=== PATIENT | male | born 1965 | race Asian ===

== ENCOUNTER 2017-07-24 18:05 | Inpatient (IN) | payer OTHER ==
[~2017-07-24] VITALS: Ht 167.6 cm; Wt 82.1 kg
[2017-07-24 18:05] VITALS: BP 124/79
[~2017-07-24 18:05] MED LIST: ACET-7756 GT; ACET-8386 GT; ATI.5 GT; ATOR20TA GT; ATRN INH; CODE118S2 GT; D50SYR IV; FOS500 PO; KEP500L GT; LACT1CAP24 GT; MULT15LI1 GT; NITR0.4T2 SL; POLY15SO48 OP; PRON INH; ZINC220C12 GT; [UNRECOGNIZED DRUG - CODE] GT; [UNRECOGNIZED DRUG - CODE] PO; [UNRECOGNIZED DRUG - CODE] PO
--- NOTE | 2017-07-24 18:05 | NUR ---
ASSUMED CARE OF PT AT THIS THIS TIME. PT PRES[facility] FOR ANA LUISA CATHETER REPLACEMENT. PT DID NOT RECEIVE DIALYSIS TODAY. PMH= QUADRAPLEGIA S/T INTRACRANIAL HEMORRHAGE, DM2, ESRD, HYPERLIPIDEMIA, ANEMIA, HTN. PT HAS TRACHESOTOMY AND IS VENT DEPENDENT W/ THE FOLLOWING SETTINGS: AC12, QV=502, PEEP=5, AND FiO2=35%. G-TUBE NOTED. PT IS CURRENTLY AT BASELINE MENTATION. LUNGS CLEAR BL; HR EVEN AND REGULAR; PAIN OF 0/10 AT THIS TIME; VSS; PATIENT POSITIONED FOR COMFORT; HOB ELEVATED; BEDRAILS UP X2; BED DOWN. ER MD MADE AWARE OF PT STATUS.
--- NOTE | 2017-07-24 18:05 | NUR ---
Patient BIBA CCT on ventilator from SNF, transferred to bed 5. RN evaluating patient at bedside.
[2017-07-24 18:10] VITALS: BP 124/79
--- NOTE | 2017-07-24 18:10 | NUR ---
Respiratory therapist evaluating patient at bedside.
[2017-07-24] MEDS ORDERED: ACET-7756 GT (18:50)
[2017-07-24] MEDS ORDERED: APIX2.5 GT (18:51)
[2017-07-24] MEDS ORDERED: LORA-476 GT (18:55)
[2017-07-24] MEDS ORDERED: ATOR10TA GT (18:56)
[2017-07-24] MEDS ORDERED: DOCU-299 GT (18:57)
[2017-07-24] MEDS ORDERED: KEP500L GT (18:59)
[2017-07-24] MEDS ORDERED: PANT40EC GT (19:00)
[2017-07-24] MEDS ORDERED: SEVE0.8P GT (19:02)
--- NOTE | 2017-07-24 19:11 | NUR ---
REPORT GIVEN TO FRACISCO NYE TO ASSUMED CARE.
--- NOTE | 2017-07-24 19:32 | NUR ---
Dr. Goldstein evaluating patient at bedside.
[2017-07-24 20:10] LABS: BASOPHILS % (AUTO) 0.5 % (0.0-2.0); EOSINOPHILS # (AUTO) 0.5 K/uL (0-0.4); EOSINOPHILS % (AUTO) 7.4 % (0.0-4.0); HEMATOCRIT 26.8 % (36-52); HEMOGLOBIN 8.9 g/dL (12.0-18.0); LYMPHOCYTES # (AUTO) 0.6 K/uL (2.0-11.5); LYMPHOCYTES % (AUTO) 9.2 % (20.5-51.1); MEAN CORPUSCULAR HEMOGLOBIN 29 pg (27-31); MEAN CORPUSCULAR HGB CONC 33 g/dL (33-37); MEAN CORPUSCULAR VOLUME 87.3 fL (80-94); MONOCYTES # (AUTO) 0.4 K/uL (0.8-1.0); MONOCYTES % (AUTO) 5.7 % (1.7-9.3); NEUTROPHILS # (AUTO) 5.1 K/uL (1.8-7.7); NEUTROPHILS % (AUTO) 77.2 % (42.2-75.2); PLATELET COUNT (AUTO) 82 K/uL (140-450); RED BLOOD CELL COUNT(AUTO) 3.06 MIL/uL (4.20-6.10); RED CELL DISTRIBUTION WIDTH 14.6 % (11.6-13.7); WHITE BLOOD COUNT (AUTO) 6.6 K/uL (4.8-10.8)
[2017-07-24 20:23] LABS: ANION GAP 14.4 (8-16); CARBON DIOXIDE 26.4 mmol/L (21-32); POTASSIUM 3.8 mmol/L (3.5-5.1)
[2017-07-24 20:25] LABS: CREATININE 7.3 mg/dL (0.7-1.3)
[2017-07-24] MEDS ORDERED: NACL 0.9% 1,000 ML IV SCH (20:34)
[2017-07-24] MEDS ORDERED: DOCUSATE SODIUM 100 MG GELCAP PO PRN (20:35)
[2017-07-24] MEDS ORDERED: METOCLOPRAMIDE 10 MG/2 ML INJ VIAL IVP SCH (20:35)
[2017-07-24] MEDS ORDERED: ACETAMINOPHEN 325 MG TAB PO PRN (20:35)
[2017-07-24] MEDS ORDERED: HYDROcodone/APAP 7.5/325 MG 1 TAB PO PRN (20:35)
[2017-07-24] MEDS ORDERED: INSULIN LISPRO SLIDING SCALE 100 UNITS/ML VIAL SUBQ PRN (20:45)
[2017-07-24] MEDS ORDERED: LIDOCAINE HYDROCHLORIDE PO SCH (20:45)
[2017-07-24] MEDS ORDERED: MAGNESIUM HYDROXIDE 1200 MG PO SCH (20:45)
[2017-07-24] MEDS ORDERED: ALBUTEROL 0.083% 2.5 MG/3 ML NEBU INH PRN ×2 (20:45→23:30)
[2017-07-24] MEDS ORDERED: DEXTROSE 50% 50 ML SYR IVP PRN (20:45)
[2017-07-24] MEDS ORDERED: ACETAMINOPHEN 160 MG/5 ML UDC GT PRN ×2 (20:45)
--- NOTE | 2017-07-24 20:49 | NUR ---
Patient will be admitted to care of [facility]. Admited to TELE. Will go to room 123a. Belongings list completed. Report to SEAN YAP
--- NOTE | 2017-07-24 20:49 | NUR ---
Pt transferred to Tele 123B via BED WITH RN JANE,RT, EMT.
--- NOTE | 2017-07-24 20:50 | NUR ---
PATIENT TRANSFERRED TO ROOM 123B VIA 50% AMBU BAG WITH ASSISTANCE FROM ABI SANDY. NO RESP DISTRESS NOTED DURING TRANSPORT. PLACE BACK ON VENTILATOR AC-12, VT-450, FIO2-35% PEEP+5
[2017-07-24 20:55] VITALS: BP 118/67
--- NOTE | 2017-07-24 20:55 | NUR ---
REPORT RECEIVED FROM ED NURSE. PT IN STABLE CONDITION. INTRODUCED SELF TO PT. GOWN CHANGED. PT VENTILATED AND APHASIC. IV SITE RIGHT HAND 24G PATENT AND INTACT. SKIN WARM, DRY AND INTACT WITH NO OPEN WOUNDS. VENT SETTINGS ARE TV 450, FIO2 35, RR 12, PEEP 5. PT WITH GTUBE THAT IS INTACT, PLACEMENT VERIFIED BY AUSCULTATION. LUNGS CLEAR BILATERALLY. BED LOCKED IN LOW POSITION. CALL BRICENO WITHIN REACH. WILL CONTINUE TO MONITOR.
[2017-07-24] MEDS ORDERED: [UNRECOGNIZED DRUG - MIXTURE] GT SCH (21:00)
[2017-07-24] MEDS ORDERED: [UNRECOGNIZED DRUG - OTHER] GT SCH (21:00)
[2017-07-24] MEDS ORDERED: IRON GT SCH (21:00)
[2017-07-24] MEDS ORDERED: SEVELAMER CARBONATE GT SCH (21:00)
[2017-07-24] MEDS ORDERED: SODIUM GT SCH (21:00)
[2017-07-24] MEDS: BLOOD GLUCOSE MONITORING 1 DEV DEV FS SCH (21:00)
[2017-07-24 21:02] LABS: PROTHROMBIN TIME 11.2 secs (10.8-13.4)
[2017-07-24 21:15] LABS: CHOL/HDL RATIO 1.4 (1-4.5); FREE T4 (FREE THYROXINE) 0.94 ng/dL (0.76-1.46); MAGNESIUM 2.6 mg/dL (1.8-2.4); THYROID STIMULATING HORMONE 2.61 uIU/mL (0.34-3.74)
--- NOTE | 2017-07-24 22:15 | NUR ---
PM MEDS GIVEN. PT TOLERATED WELL. WILL CONTINUE TO MONITOR.
[2017-07-24] MEDS: levETIRAcetam 100 MG/ML ORASYR GT SCH (22:23)
[2017-07-24] MEDS: ATORVASTATIN 20 MG TAB GT SCH (22:23)
--- NOTE | 2017-07-24 23:30 | NUR ---
ORDERED LEVAQUIN AND CLEOCIN FOR PT DUE TO CHEST XRAY RESULTS SEEING PNA IN HE BASES OF THE LUNGS. AWAITING PHARMACY TO PROCESS AND COMPLETE ORDER. Addendum: 07/25/17 at 0122 by Leonard Galvin RN STATED ORDER WILL BE LEVAQUIN 750 ONCE THEN LEVAQUIN 500MG Q48H.
[2017-07-25] VITALS: BP 125/68
[2017-07-25] MEDS ORDERED: ALBUTEROL 0.083% 2.5 MG/3 ML NEBU INH SCH
[2017-07-25] MEDS ORDERED: IPRATROPIUM 0.02% 0.5 MG/2.5 ML NEBU INH SCH
[2017-07-25] MEDS: LEVOFLOXACIN 750 MG/D5W PREMIX 150 ML IV SCH (00:24)
[2017-07-25] MEDS: IPRATROPIUM 0.02% 0.5 MG/2.5 ML NEBU INH SCH ×4 (01:00→18:53)
[2017-07-25] MEDS: ALBUTEROL 0.083% 2.5 MG/3 ML NEBU INH SCH ×4 (01:00→18:53)
--- NOTE | 2017-07-25 01:00 | NUR ---
PT ASLEEP IN BED BUT AROUSABLE. PT NOT IN ANY ACUTE DISTRESS. WILL CONTINUE TO MONITOR.
--- NOTE | 2017-07-25 03:35 | NUR ---
PT IV SITE INFILTRATED CAUSING SWELLING IN THE ARM. IV SITE DC. CANNULA IS INTACT. PT ARM ELEVATED WITH A PILLOW AND WARM COMPRESS.
[2017-07-25 04:00] VITALS: BP 124/70
[2017-07-25] MEDS ORDERED: CLINDAMYCIN 600 MG in DEXTROSE 5% 50 ML IV SCH (05:00)
--- NOTE | 2017-07-25 05:10 | NUR ---
NEW IV INSERTED LEFT FINGER. 2 ATTEMPTS. PT TOLERATED WELL.
[2017-07-25] MEDS ORDERED: CLINDAMYCIN 600 MG/4 ML VIAL ONE (05:38)
[2017-07-25] MEDS: BLOOD GLUCOSE MONITORING 1 DEV DEV FS SCH ×4 (06:28→20:06)
--- NOTE | 2017-07-25 06:43 | NUR ---
rec'd pt on carescape vent settings ac12 vt 450 peep 5 fio2 35% alarms on and audible and functioning properly, ambu bag at side of vent and vent is plugged into red outlet, i\l tx given with albuterol 2.5mg and atrovent 0.5mg with no adverse reaction post tx b\s are clear bilaterally, sxn pt moderate amt of thick yellow secretions, pt is trach with portex 9 and skin integrity is intact pt is resting with no signs of distress noted at this time
--- NOTE | 2017-07-25 07:15 | NUR ---
REPORT GIVEN TO AM NURSE. PT IN STABLE CONDITION.
--- NOTE | 2017-07-25 07:16 | NUR ---
REPORT RECEIVED FROM CIRCUIT BREAKER MECHANIC NURSE AT BEDSIDE FOR CONTINUITY OF CARE. PATIENT AOX1, APHASIC, DX: ANA LUISA CATH REPLACEMENT. ANA LUISA CATH IS ON LEFT UPPER CHEST. IV TO LEFT INDEX FINGER 24G INFUSING NS AT 60 ML/HR, PATENT, INTACT, AND ASYMPTOMATIC. PATIENT IS TRACH TO VENT, VT 450, FIO2 35, RR 16, PEEP 5. FLACC-0, RIGHT ARM NON PITTING EDEMA D/T PRIOR INFILTRATED IV, ELEVATED ON PILLOW. SKIN IS INTACT. SCDS IN PLACE, PATIENT IS IN CONTACT ISOLATION FOR HX OF MDRO IN URINE. SAFETY AND ISOLATION PRECAUTION IN PLACE, BED ON LOWEST SETTING, BED ALARM ON, CALL LIGHT WITHIN REACH, WILL CONTINUE TO MONITOR PATIENT.
[2017-07-25 08:00] VITALS: BP 126/68
[2017-07-25] MEDS: ZINC SULF 220 MG CAP GT SCH (08:28)
[2017-07-25] MEDS: LACTOBACILLUS RHAMNOSUS GG 1 EACH CAP PO SCH (08:28)
[2017-07-25] MEDS: levETIRAcetam 100 MG/ML ORASYR GT SCH ×2 (08:28→20:50)
--- NOTE | 2017-07-25 08:28 | NUR ---
GTUBE AUSCULTATED, 0 ML RESIDUAL NOTED, GTUBE PATENT. ORDERED MEDICATIONS ADMINISTERED. PATIENT TOLERATED THEM WELL. PATIENT SUCTIONED, MINIMAL WHITE CLEAR SECRETIONS NOTED. FLACC-0, RESPIRATIONS EVEN AND UNLABORED. SAFETY AND ISOLATION PRECAUTION IN PLACE, BED ON LOWEST SETTING, BED ALARM ON, CALL LIGHT WITHIN REACH, WILL CONTINUE TO MONITOR PATIENT. Addendum: 07/25/17 at 1035 by Helder Boateng RN GTUBE MEDICATIONS FLUSHED WITH 100 ML OF WATER.
[2017-07-25] MEDS ORDERED: PANTOPRAZOLE 40 MG TABEC PO SCH (09:00)
[2017-07-25] MEDS ORDERED: LANSOPRAZOLE 30 MG CAPDR GT SCH (09:00)
[2017-07-25] MEDS ORDERED: LACTOBACILLUS RHAMNOSUS GG 1 EACH CAP GT SCH (09:00)
--- NOTE | 2017-07-25 09:00 | NUR ---
vent check, airway patent and pt is sleeping
--- NOTE | 2017-07-25 09:47 | NUR ---
NEW ORDER IN FOR PREVACID. GTUBE AUSCULTATED, 0 ML RESIDUAL NOTED, GTUBE PATENT. ORDERED MEDICATIONS ADMINISTERED AND FLUSHED WITH TOTAL OF 60 ML OF WATER. PATIENT TOLERATED IT WELL. PATIENT SUCTIONED, MINIMAL WHITE CLEAR SECRETIONS NOTED. FLACC-0, RESPIRATIONS EVEN AND UNLABORED. SAFETY AND ISOLATION PRECAUTION IN PLACE, BED ON LOWEST SETTING, BED ALARM ON, CALL LIGHT WITHIN REACH, WILL CONTINUE TO MONITOR PATIENT.
[2017-07-25 09:57] LABS: PLATELET COUNT (AUTO) 84 K/uL (140-450)
[2017-07-25 10:01] LABS: HEMOGLOBIN 8.7 g/dL (12.0-18.0); MEAN CORPUSCULAR HEMOGLOBIN 29 pg (27-31); MEAN CORPUSCULAR HGB CONC 33 g/dL (33-37); MEAN CORPUSCULAR VOLUME 87.2 fL (80-94); RED BLOOD CELL COUNT(AUTO) 2.98 MIL/uL (4.20-6.10); RED CELL DISTRIBUTION WIDTH 14.5 % (11.6-13.7); WHITE BLOOD COUNT (AUTO) 7.3 K/uL (4.8-10.8)
[2017-07-25 10:14] LABS: EOSINOPHILS % (MANUAL) 4 % (0-4); LYMPHOCYTES % (MANUAL) 10 % (20-46); MONOCYTES % (MANUAL) 9 % (5-12)
[2017-07-25 10:15] LABS: BASOPHILS % (MANUAL) 0 % (0-2)
[2017-07-25 10:19] LABS: ANION GAP 15.3 (8-16); CARBON DIOXIDE 24.5 mmol/L (21-32); POTASSIUM 3.8 mmol/L (3.5-5.1)
--- NOTE | 2017-07-25 10:22 | NUR ---
LAB CALLED TO REPORT CRITICAL VALUE OF BUN 97, CREATININE 8.1
[2017-07-25 10:23] LABS: CREATININE 8.1 mg/dL (0.7-1.3)
--- NOTE | 2017-07-25 11:00 | NUR ---
VENT CHECK, SXN PT FOR SECOND C&S MODERATE AMT OF THICK YELLOW SECRETIONS PT IS ALSO HAVING ULTRA SOUND DONE
--- NOTE | 2017-07-25 11:05 | NUR ---
LAB CALLED, SPUTUM SAMPLE CONTAMINATED, NEW SPUTUM SAMPLE NEEDED. RT DESTIN INDUCED SPUTUM, SAMPLE RECEIVED. SAMPLE DROPPED OFF AT LAB.
--- NOTE | 2017-07-25 11:54 | NUR ---
PATIENT GIVEN SPONGE BATH BY ONLINE EDITOR. PATIENT CLEANED AND CHANGED INTO NEW GOWN AND REPOSITIONED TO OFFLOAD PRESSURE AREAS AND FOR COMFORT. BLOOD SUGAR 81, NO COVERAGE NEEDED. FLACC-0, PATIENT SUCTIONED, MINIMAL SECRETIONS NOTED. RESPIRATIONS EVEN AND UNLABORED. SAFETY AND ISOLATION PRECAUTION IN PLACE, BED ON LOWEST SETTING, BED ALARM ON, CALL LIGHT WITHIN REACH, WILL CONTINUE TO MONITOR PATIENT.
[2017-07-25 11:56] VITALS: BP 114/65
[2017-07-25] MEDS: CLINDAMYCIN PHOS 600MG/D5W PM 50 ML IV SCH ×2 (12:30→20:50)
--- NOTE | 2017-07-25 12:54 | NUR ---
CALLED LAB TO INQUIRE IF THEY NEED NEW ORDER TO TEST SPUTUM SAMPLE, THEY ANSWERED IN THE AFFIRMATIVE. WILL PASS THIS ALONG TO THE PHYSICIAN.
--- NOTE | 2017-07-25 12:56 | NUR ---
vent check, no sxn needed at this time, i\l tx givent with albuterol 2.5mg and atrovent 0.5 mg with no adverse reaction post tx b\s are clear and pt is sleeping with no signs of distress noted
--- NOTE | 2017-07-25 13:55 | NUR ---
DR. PONCE IN TO SEE THE PATIENT. UPDATED HIM WITH PATIENT'S STATUS AND PLAN OF CARE. DR. PONCE STATED THAT ONCE ANA LUISA CATH REPLACEMENT HAS BEEN PERFORMED, PLEASE MAKE HIM AWARE SO HE CAN PUT IN AN ORDER FOR DIALYSIS. RN VERBALIZED UNDERSTANDING.
--- NOTE | 2017-07-25 14:02 | NUR ---
INFORMED RESIDENTS OF NEED FOR NEW SPUTUM ORDER AND POSSIBLY FOR STRAIGHT CATH ORDER IF THEY WANT A URINE SAMPLE. DR. MADISON ASKED IF PATIENT HAD URINE. BLADDER SCAN PERFORMED, [address] MADISNO STATED THAT SHE WILL DC URINALYSIS PROFILE.
[2017-07-25] MEDS ORDERED: LIDOCAINE VISCOUS 2% 20 ML UDC MM PRN (14:10)
[2017-07-25] MEDS ORDERED: MAGNESIUM HYDROXIDE 2400 MG/30 ML UDC PO PRN (14:10)
--- NOTE | 2017-07-25 14:45 | NUR ---
IN TO SEE PATIENT. DR. MADISON ALSO IN TO SPEAK TO PATIENT ABOUT CONSENT FOR TUNNELED DIALYSIS CATHETER. DR. MADISON EXPLAINED THE BENEFITS AND RISKS TO PATIENT'S SYLVIASYLVIA VERBALIZED UNDERSTANDING AND SIGNED CONSENT. RN WITNESSED. PATIENT NOW RESTING IN BED, NO SIGNS OF DISTRESS OR SOB NOTED. FLACC-0. SAFETY, ISOLATION, AND SEIZURE PRECAUTION IN PLACE, CALL LIGHT WITHIN REACH. WILL CONTINUE TO MONITOR PATIENT.
--- NOTE | 2017-07-25 15:05 | NUR ---
VENT CHECK, FAMILY AT BEDSIDE SXN PT MODERATE AMT OF THICK YELLOW SECRETIONS, PT IS RESTING
--- NOTE | 2017-07-25 15:08 | NUR ---
ADMITTING WAS CALLED ABOUT PATIENT'S ADMISSION PAPERWORK SINCE SYLVIA IS HERE AND CAN SIGN FOR PATIENT. ABY FROM ADMITTING CAME. ADMISSIONS PAPER SIGNED.
--- NOTE | 2017-07-25 15:50 | NUR ---
DR. MCDANIEL IN TO SEE THE PATIENT. UPDATED HIM ABOUT PATIENT'S STATUS AND CONDITION. HE SAID THAT HE WILL ORDER ABGS TO MANAGE PATIENT'S VENT SETTINGS. AWAITING FOR HIS ORDER.
[2017-07-25 16:00] VITALS: BP 118/66
--- NOTE | 2017-07-25 16:31 | NUR ---
ABG DRAWN ON RR WITHOUT INCIDENT AND RESULTS GIVEN TO DR. CHEUNG VENT CHECK NO SXN NEEDED AND DECREASED FIO2 TO 30% AND TRACH CARE DONE: CHANGED TRACH GAUZE AND INNER CANNULA Addendum: 07/25/17 at 1640 by Grisel Marsh RT decreased fio2 to 28% and rn ky notified of changes made and dr. cheung
--- NOTE | 2017-07-25 16:35 | NUR ---
RT DESIREE INFORMED RN THAT ABG WAS DRAWN, DR. MADISON INFORMED, FIO2 SETTING DECREASED TO 28% FROM 35%. RN VERBALIZED UNDERSTANDING. BLOOD SUGAR 85, NO COVERAGE NEEDED. PATIENT RESTING CALMLY IN BED, NO SIGNS OF DISTRESS OR SOB NOTED, FLACC-0, SAFETY AND ISOLATION PRECAUTION IN PLACE, BED ON LOWEST SETTING, BED ALARM ON, CALL LIGHT WITHIN REACH, WILL CONTINUE TO MONITOR PATIENT.
[2017-07-25] MEDS: FERROUS SULFATE 300 MG/5 ML UDC GT SCH (16:56)
[2017-07-25] MEDS ORDERED: APIXABAN 2.5 MG TAB GT SCH (17:00)
--- NOTE | 2017-07-25 17:03 | NUR ---
GTUBE ASCULATED FOR PLACEMENT, 0 ML RESIDUAL NOTED, GTUBE PATENT. ORDERED MEDICATIONS GIVEN THROUGH G TUBE. PATIENT TOLERATED IT WELL. DR. CAMARA IN TO SEE THE PATIENT. WILL AWAIT FOR HIS ORDERS.
--- NOTE | 2017-07-25 18:53 | NUR ---
vent check, sxn pt small amt of thick yellow secretions, i\l tx given with albuterol 2.5mg and atrovent 0.5mg with no adverse reaction post tx
--- NOTE | 2017-07-25 19:12 | NUR ---
REPORT GIVEN TO SANITARIAN NURSE AT BEDSIDE FOR CONTINUITY OF CARE. PATIENT IN STABLE CONDITION.
--- NOTE | 2017-07-25 19:13 | NUR ---
REPORT RECEIVED FROM AM NURSE. PT IN STABLE CONDITION NO S/S OF ACUTE DISTRESS. PT AAOX1. VENT SETTINGS VT 450, FIO2 28, RR 12, PEEP 5. PT SHOWS NO S/S OF ACUTE DISTRESS. LUNGS SOUNDS DIMINISHED BILATERALLY. HEART SOUNDS NORMAL S1 S2. PT STILL NPO FOR ANA LUISA CATH REPLACEMENT TOMORROW 07/26 AT 0900. BED LOCKED WITH X2 SIDERAILS UP. CALL BRICENO WITHIN REACH. WILL CONTINUE TO MONITOR.
--- NOTE | 2017-07-25 19:35 | NUR ---
RECEIVED PT ON PORTEX 9 TRACH ON VENTILATOR ON SETTINGS: AC/VC 450, RR 12, 28%FI02, AND PEEP +5. AIRWAY SECURED AND PATENT. VENT PLUGGED INTO RED OUTLET AND AMBU BAG. ALARMS ARE SET AND AUDIBLE. NO RESPIRATORY DISTRESS NOTED. SXN SMALL AMOUNT OF THIN WHITE SECRETIONS. WILL CONTINUE TO MONITOR.
[2017-07-25 20:00] VITALS: BP 117/67
--- NOTE | 2017-07-25 20:15 | NUR ---
BS 74 TRENDING DOWN. WILL NOTIFY
--- NOTE | 2017-07-25 20:33 | NUR ---
NOTIFIED. AWAITING NEW ORDERS.
[2017-07-25] MEDS: DEXT 5% / NACL 0.45% 1,000 ML IV SCH (20:50)
[2017-07-25] MEDS: ATORVASTATIN 20 MG TAB GT SCH (20:50)
--- NOTE | 2017-07-25 21:00 | NUR ---
MD ORDER OF D5 1/2NS AT 60ML/HR. PM MEDS GIVEN. PT TOLERATED WELL. PT GTUBE PLACEMENT CHECKED THROUGH AUSCULTATION AND 0ML RESIDUAL. WILL CONTINUE TO MONITOR.
--- NOTE | 2017-07-25 22:00 | NUR ---
SUCTIONED PT DUE TO PT COUGHING. PT TOLERATED WELL. WILL CONTINUE TO MONITOR.
[2017-07-26] VITALS: BP 114/64
--- NOTE | 2017-07-26 00:15 | NUR ---
PT ASLEEP IN BED. CHEST EXPANSION VISIBLE. PT NOT IN ANY ACUTE DISTRESS. WILL CONTINUE TO MONITOR.
[2017-07-26] MEDS: ALBUTEROL 0.083% 2.5 MG/3 ML NEBU INH SCH ×4 (01:19→18:48)
[2017-07-26] MEDS: IPRATROPIUM 0.02% 0.5 MG/2.5 ML NEBU INH SCH ×4 (01:19→18:48)
--- NOTE | 2017-07-26 02:15 | NUR ---
NEW IV IN PLACE. 24G RIGHT UPPER ARM. 4 ATTEMPTS AT IV STARTS. LEFT FINGER IV DC. CANNULA INTACT. PT TOLERATED WELL. WILL CONTINUE TO MONITOR. Addendum: 07/26/17 at 0245 by Leonard Galvin RN L FINGER IV CAME OUT WHEN TURNING PT.
--- NOTE | 2017-07-26 03:55 | NUR ---
SUCTIONED PT OF MUCUS SECRETION. PT TOLERATED WELL. PT IS NOT IN ANY ACUTE DISTRESS. WILL CONTINUE TO MONITOR.
[2017-07-26 04:00] VITALS: BP 119/67
[2017-07-26] MEDS: CLINDAMYCIN PHOS 600MG/D5W PM 50 ML IV SCH ×3 (04:02→20:51)
[2017-07-26] MEDS: BLOOD GLUCOSE MONITORING 1 DEV DEV FS SCH ×4 (05:53→20:50)
[2017-07-26] MEDS: LANSOPRAZOLE 30 MG CAPDR GT SCH (05:55)
--- NOTE | 2017-07-26 06:00 | NUR ---
BLOOD BEING DRAWN BY LAB. PT AWAKE WITH CHEST EXPANSION SEEN. WILL CONTINUE TO MONITOR.
[2017-07-26] MEDS ORDERED: PANTOPRAZOLE 40 MG TABEC PO SCH (06:30)
--- NOTE | 2017-07-26 06:34 | NUR ---
RECEIVED PT ON DOCUMENTED SETTINGS ALARMS ARE ON AND AUDIBLE PTS TRACH PORTEX 9 IS SECURE PT IN HF QUIET BS CLEAR HHN GIVEN I\L WITH 2.5 MG ALBUTEROL AND 0.5 MG ATROVENT CONT POX IN PLACE BMV HOB VENT PLUGGED INTO RED OUTLET
--- NOTE | 2017-07-26 07:05 | NUR ---
REPORT GIVEN TO AM NURSE. PT IN STABLE CONDITION.
--- NOTE | 2017-07-26 07:45 | NUR ---
RECEIVED REPORT FROM STITCH SEPARATOR NURSE, PT EASILY AWAKEN, INTRODUCED SELF, UPDATED BOARD. PT IN BED, NO SIGNS OF DISTRESS, IV ON RIGHT UPPER ARM AT 60 ML/HR, TAPPED IN PLACE, INTACT, NOR SIGNS OF INFECTION OR INFILTRATION, BED IN LOWEST POSITION, CALL LIGHTWEIGHT REACH. G-TUBE IN LEFT UPPER QUAD DRESSING WILL BE CHANGED UPON PTS ARRIVAL BACK FROM PROCURE FOR JOSEP CATH.
[2017-07-26 08:00] VITALS: BP 116/65
[2017-07-26 08:17] LABS: BASOPHILS % (AUTO) 0.8 % (0.0-2.0); EOSINOPHILS # (AUTO) 0.4 K/uL (0-0.4); EOSINOPHILS % (AUTO) 6.3 % (0.0-4.0); HEMOGLOBIN 8.2 g/dL (12.0-18.0); LYMPHOCYTES # (AUTO) 0.9 K/uL (2.0-11.5); LYMPHOCYTES % (AUTO) 15.5 % (20.5-51.1); MEAN CORPUSCULAR HEMOGLOBIN 29 pg (27-31); MEAN CORPUSCULAR HGB CONC 33 g/dL (33-37); MEAN CORPUSCULAR VOLUME 87.3 fL (80-94); MONOCYTES # (AUTO) 0.5 K/uL (0.8-1.0); MONOCYTES % (AUTO) 8.3 % (1.7-9.3); NEUTROPHILS # (AUTO) 3.9 K/uL (1.8-7.7); NEUTROPHILS % (AUTO) 69.1 % (42.2-75.2); PLATELET COUNT (AUTO) 87 K/uL (140-450); RED BLOOD CELL COUNT(AUTO) 2.86 MIL/uL (4.20-6.10); RED CELL DISTRIBUTION WIDTH 14.4 % (11.6-13.7); WHITE BLOOD COUNT (AUTO) 5.7 K/uL (4.8-10.8)
[2017-07-26] MEDS: LACTOBACILLUS RHAMNOSUS GG 1 EACH CAP PO SCH ×2 (08:17→08:18)
[2017-07-26] MEDS: LORazepam 1 MG TAB GT SCH (08:17)
[2017-07-26] MEDS: FERROUS SULFATE 300 MG/5 ML UDC GT SCH ×2 (08:17→16:36)
[2017-07-26] MEDS: levETIRAcetam 100 MG/ML ORASYR GT SCH ×2 (08:17→20:50)
[2017-07-26] MEDS: ZINC SULF 220 MG CAP GT SCH (08:17)
[2017-07-26] MEDS ORDERED: BUPIVACAINE-MPF 0.25% 30 ML VIAL INJ ONE (08:27)
[2017-07-26] MEDS ORDERED: LIDOCAINE/EPI 1% 1:100000 20 ML VIAL INJ ONE (08:28)
[2017-07-26] MEDS ORDERED: ceFAZolin 1,000 MG VIAL ONE (08:28)
--- NOTE | 2017-07-26 08:30 | NUR ---
HIGH PRESSURE ALARM WENT OFF, SUCTIONED 2X, V/S STABLE AFTER/ PT SEEMED MORE RELAXED AFTER SUCTIONING. WILL GIVE DUE MEDICATION AND CHANGED G-TUBE DRESSING, SCANT DRIED BLOOD NOTED ON OLD DRESSING. NEW DRESSING APPLIED AND TAPED ON ALL 4 SIDE. SPOKE WITH SIMONE FROM OR, CONFIRMED 'S PHONE NUMBER TO CONFIRM CONSENT FOR JOSEP CATH REMOVAL/REPLACEMENT.
[2017-07-26 08:33] LABS: MAGNESIUM 2.6 mg/dL (1.8-2.4); PHOSPHORUS 4.3 mg/dL (2.5-4.9)
[2017-07-26] MEDS ORDERED: SEVOFLURANE 250 ML BTL INH ONE (09:00)
[2017-07-26] MEDS ORDERED: fentaNYL 0.05 MG/ML VIAL ONE (09:21)
[2017-07-26] MEDS ORDERED: MIDAZOLAM 2 MG/2 ML VIAL ONE (09:21)
--- NOTE | 2017-07-26 09:26 | NUR ---
SHRIMP BOAT CAPTAIN'S CLARI AND IRVIN TOOK PT TO OR FOR JOSEP CATH REMOVAL/REPLACEMENT. PT IV SITE CHANGED TO SL AND BLUE CAP APPLIED. RT AT BEDSIDE AND TOOK PT OFF VENTILATOR AND ATTACHED TO AMBU BAG. TAKEN OFF TELE. PT STABLE, NO SIGNS OF DISTRESS.
[2017-07-26 10:19] LABS: ANION GAP 17.4 (8-16); CARBON DIOXIDE 22.4 mmol/L (21-32); POTASSIUM 3.8 mmol/L (3.5-5.1)
[2017-07-26 10:21] LABS: CREATININE 9.3 mg/dL (0.7-1.3)
[2017-07-26] MEDS ORDERED: MIDAZOLAM 2 MG/2 ML VIAL IVP ONE (10:35)
[2017-07-26] MEDS ORDERED: METOCLOPRAMIDE 10 MG/2 ML INJ VIAL IVP PRN (10:35)
[2017-07-26] MEDS ORDERED: MEPERIDINE 25 MG/ML SYR IVP PRN ×2 (10:35)
--- NOTE | 2017-07-26 11:07 | NUR ---
PT OFF UNIT
[2017-07-26 12:05] VITALS: BP 120/76
--- NOTE | 2017-07-26 12:05 | NUR ---
PT RECEIVED FROM OR NURSE MARTIN. PT STABLE. JOSEP CATH ON RIGHT FEMORAL. WILL PLACE BACK ON [facility] VENT, CONNECT BACK TO IV DEXTROSE AT 60 ML/HR, SECURE SEQUENTIAL TO LEFT LEG. VS: 98.0 F, 76 HR, 120/76, 16 RR, 96 O2 SAT, NO PAIN ACCORDING TO FLACC. WILL CONTINUE TO MONITOR AND GIVE DUE MEDICATIONS. CALL LIGHT WITHIN REACH, WILL CONTINUE FREQ CHECKS.
--- NOTE | 2017-07-26 12:05 | NUR ---
PT RETURNED FROM SURGERY PLACED ON A\C WITH SAME SETTINGS
[2017-07-26] MEDS: DEXT 5% / NACL 0.45% 1,000 ML IV SCH (12:41)
--- NOTE | 2017-07-26 12:55 | NUR ---
CONSULTED WITH DIETITIAN JENNIFER. WILL FOLLOW UP WITH ORDERS TO PLACE BACK ON FEEDING AND USE JENNIFER'S RECOMMENDATIONS TO DICTATE DIET TYPE/RATE.
--- NOTE | 2017-07-26 14:30 | NUR ---
PER DR. PONCE START DIALYSIS TODAY.
--- NOTE | 2017-07-26 15:40 | NUR ---
07/26/17 RD INITIAL ASSESSMENT COMPLETED PLEASE REFER TO NUTRITION ASSESSMENT UNDER CARE ACTIVITY FOR ESTIMATED NUTRITIONAL NEEDS. 1. CONTINUE NPO MEDICALLY APPROPRIATE 2. RECOMMEND NEPHRO CARB STEADY AT A GOAL RATE OF 45 ML/HR, START AT 10 ML, INCREASE 10 ML Q6H. -THIS WILL PROVIDE 1080 ML, 1944 KCAL, 82 GM PROTEIN, MEETING 100% OF PTS NEEDS. 3. RD TO FOLLOW-UP 2-3 DAYS, HIGH RISK JENNIFER LANGSTON, RD
[2017-07-26 16:00] VITALS: BP 133/76
[2017-07-26] MEDS: APIXABAN 2.5 MG TAB GT SCH (16:36)
--- NOTE | 2017-07-26 17:00 | NUR ---
DIALYSIS NURSE IS AT PATIENT BEDSIDE BEGINNING DIALYSIS. RECEIVED PHONE CALL FROM DR. RUIZ, DOCTOR SPOKE TO DIALYSIS NURSE OVER THE PHONE AND RECEIVED TELEPHONE ORDERS. PT IS RESTING IN BED, NO S/S OF RESPIRATORY DISTRESS OR DISCOMFORT NOTED, CALL LIGHT IS WITHIN REACH, WILL CONTINUE TO MONITOR.
--- NOTE | 2017-07-26 17:45 | NUR ---
PATIENT TUBE FEEDING STARTED AT THIS TIME. INITIAL RATE 10ML/HR, WILL CONTINUE TO MONITOR.
--- NOTE | 2017-07-26 19:01 | NUR ---
RECEIVED PT STABLE ON VENT SUPPORT ON DOCUMENTED SETTINGS, PT IS CURRENTLY FINISHING RECEIVING DIALYSIS AT THIS TIME, HHN TX GIVEN, TOLERATED WELL, NO RESP DISTRESS OR SOB NOTED AT THIS TIME, FOUND PORTEX 9 TRACH FLANGE [address] IN PLACE, OTHERWISE TRACH SECURE/PATENT/MIDLINE, ALARMS SET AND AUDIBLE, AMBU BAG AT BEDSIDE, VENT PLUGGED INTO RED OUTLET, PULSE OX ON, WILL CONT TO MONITOR.
--- NOTE | 2017-07-26 19:05 | NUR ---
RECEIVED REPORT AT PT BEDSIDE FROM DAY SHIFT RN, FOR CONTINUITY OF CARE. PATIENT IS APHASIC, ON A TRACH TO VENT WITH SETTINGS FOLLOWS: FIO2 28%, VT 450, RATE 12, FLOW RATE 40, PEEP 5. UNABLE TO MAKE NEEDS KNOWN, UNABLE TO FOLLOW COMMANDS. PT RECEIVING TUBE FEEDING THROUGH G-TUBE AT 10ML/HR. PATIENT HAS 20G IV TO RIGHT AC. RESPIRATIONS EVEN AND UNLABORED. UPDATED BOARD. VITAL SIGNS WITHIN NORMAL LIMITS. PT STABLE, NO SIGNS OF DISTRESS NOTED AT THIS TIME. BED IN LOWEST POSITION, BED ALARM ON. CALL LIGHT WITHIN REACH, WILL CONTINUE TO MONITOR.
[2017-07-26 19:50] VITALS: BP 117/76
[2017-07-26] MEDS: ATORVASTATIN 20 MG TAB GT SCH (20:51)
--- NOTE | 2017-07-26 21:00 | NUR ---
NO RESIDUAL NOTED, ADMINISTERED SCHEDULED MEDICATIONS, PT TOLERATED WELL. NO INSULIN COVERAGE NEEDED. INCREASED FEEDING RATE TO 20ML/HR. PT IN STABLE CONDITION, WILL CONTINUE TO MONITOR.
--- NOTE | 2017-07-26 23:00 | NUR ---
NO RESIDUAL NOTED, INCREASED FEEDING RATE TO 30ML/HR. WILL MONITOR TOLERANCE.
[2017-07-27] VITALS (7 sets, daily range): BP systolic 102–134; BP diastolic 63–100
--- NOTE | 2017-07-27 | NUR ---
VITAL SIGNS WITHIN NORMAL LIMITS. PT STABLE, NO SIGNS OF DISTRESS NOTED AT THIS TIME. BED IN LOWEST POSITION, BED ALARM ON. CALL LIGHT WITHIN REACH, WILL CONTINUE TO MONITOR.
[2017-07-27] MEDS: LEVOFLOXACIN 750 MG/D5W PREMIX 150 ML IV SCH (00:08)
[2017-07-27] MEDS: IPRATROPIUM 0.02% 0.5 MG/2.5 ML NEBU INH SCH ×4 (00:59→19:27)
[2017-07-27] MEDS: ALBUTEROL 0.083% 2.5 MG/3 ML NEBU INH SCH ×4 (01:00→19:27)
--- NOTE | 2017-07-27 01:00 | NUR ---
NO RESIDUAL NOTED. INCREASED FEEDING RATE TO 40ML/HR. WILL CONTINUE TO MONITOR FOR PT TOLERANCE OF RATE.
--- NOTE | 2017-07-27 03:00 | NUR ---
NO RESIDUAL PULLED, INCREASED RATE TO 45ML/HR, AND WILL CONTINUE TO MONITOR PT TOLERANCE OF TUBE FEEDING RATE.
--- NOTE | 2017-07-27 04:54 | NUR ---
INCREASED TUBE FEEDING TO 55ML/HR. NO RESIDUAL IS NOTED WHEN PULLING BACK SYRINGE. PT TOLERATING TUBE FEEDINGS VERY WELL.
[2017-07-27] MEDS: DEXT 5% / NACL 0.45% 1,000 ML IV SCH ×2 (05:00→22:35)
[2017-07-27] MEDS: CLINDAMYCIN PHOS 600MG/D5W PM 50 ML IV SCH ×3 (05:00→21:47)
[2017-07-27] MEDS: LANSOPRAZOLE 30 MG CAPDR GT SCH (05:52)
[2017-07-27] MEDS: BLOOD GLUCOSE MONITORING 1 DEV DEV FS SCH ×4 (06:19→21:56)
--- NOTE | 2017-07-27 06:20 | NUR ---
NO RESIDUAL NOTED, INCREASED TUBE FEEDING TO GOAL RATE OF 65ML/HR. WILL CONTINUE TO MONITOR.
[2017-07-27 06:44] LABS: BASOPHILS % (AUTO) 0.5 % (0.0-2.0); EOSINOPHILS # (AUTO) 0.1 K/uL (0-0.4); EOSINOPHILS % (AUTO) 3.1 % (0.0-4.0); HEMATOCRIT 25.4 % (36-52); HEMOGLOBIN 8.5 g/dL (12.0-18.0); LYMPHOCYTES # (AUTO) 0.6 K/uL (2.0-11.5); LYMPHOCYTES % (AUTO) 13.8 % (20.5-51.1); MEAN CORPUSCULAR HEMOGLOBIN 29 pg (27-31); MEAN CORPUSCULAR HGB CONC 33 g/dL (33-37); MEAN CORPUSCULAR VOLUME 87.2 fL (80-94); MONOCYTES # (AUTO) 0.4 K/uL (0.8-1.0); MONOCYTES % (AUTO) 8.2 % (1.7-9.3); NEUTROPHILS # (AUTO) 3.5 K/uL (1.8-7.7); NEUTROPHILS % (AUTO) 74.4 % (42.2-75.2); PLATELET COUNT (AUTO) 78 K/uL (140-450); RED BLOOD CELL COUNT(AUTO) 2.91 MIL/uL (4.20-6.10); RED CELL DISTRIBUTION WIDTH 14.6 % (11.6-13.7); WHITE BLOOD COUNT (AUTO) 4.7 K/uL (4.8-10.8)
[2017-07-27 07:08] LABS: CARBON DIOXIDE 24.6 mmol/L (21-32); POTASSIUM 3.6 mmol/L (3.5-5.1)
[2017-07-27 07:18] LABS: PHOSPHORUS 3.5 mg/dL (2.5-4.9)
[2017-07-27 07:21] LABS: CREATININE 6.9 mg/dL (0.7-1.3)
--- NOTE | 2017-07-27 07:28 | NUR ---
ENDORSED PT TO DAY SHIFT RN FOR CONTINUITY OF CARE. PT IN STABLE CONDITION.
--- NOTE | 2017-07-27 07:29 | NUR ---
RECEIVED REPORT FROM TROLLEY WIRE INSTALLER NURSE. PATIENT LYING DOWN IN BED COMFORTABLY. NO DISTRESS NOTED. FLACC 0. RESPIRATIONS EVEN, UNLABORED, ON VENT TO TRACH WITH VENT SETTINGS: FIO2:28, VT:450 ML, RR:12, PEEP:5. O2 SAT IS 100% WITH THESE VENT SETTINGS. RT AT BEDSIDE PERFORMING BREATHING TREATMENT. AAOX1, APHASIC, LOCALIZES TO PAIN, SKIN COLOR APPROPRIATE TO ETHNICITY, WARM TO TOUCH. SKIN IS INTACT. HAS RIGHT FEMORAL ANA LUISA CATHETER PLACED YESTERDAY BY DR. CAMARA AND HEMODIALYSIS DONE YESTERDAY 07/26/17 WITH 3000 ML FLUIDS REMOVED. IV SITE INTACT, PATENT, AND INFUSING IVF PER MD ORDERS. GTUBE FEEDING INFUSING AT 65 ML/HR PER MD ORDERS WITH H20 FLUSH: 50 ML Q4. ABDOMEN SOFT. LUNGS RHONCHI ON ALL LOBES. REVIEWED PLAN OF CARE WITH PATIENT. UNABLE TO COMPREHEND, REINFORCEMENT NEEDED. SAFETY MEASURES IN PLACE, CALL LIGHT WITHIN REACH, FALL PREVENTIONS IN PLACE, SEIZURE PRECAUTIONS IN PLACE. WILL CONTINUE TO MONITOR.
--- NOTE | 2017-07-27 07:32 | NUR ---
RECEIVED PT ON [place] ON DOCUMENTED SETTINGS ALARMS ARE ON AND AUDIBLE PTS TRAC PORTEX 9 IS SECURE PT IN HF QUIET BS CLEAR HHN GVIEN I\L WITH 2.5 MG ALBUTEROL AND 0.5 MG ATROVENT BMV HOB VENT PLUGGED INTO RED OUTLET Addendum: 07/27/17 at 1357 by Viridiana Abarca RT CONT. POX IN PLACE
[2017-07-27 08:28] LABS: T4 (THYROXINE) 5.1 ug/dL (4.5-12.0)
--- NOTE | 2017-07-27 08:38 | NUR ---
PATIENT HAS BEEN SCREENED AND CATEGORIZED HIGH NUTRITION RISK. PATIENT WILL BE SEEN WITHIN 1-2 DAYS OF ADMISSION. 07/26/[address]
[2017-07-27] MEDS: LACTOBACILLUS RHAMNOSUS GG 1 EACH CAP PO SCH ×2 (08:47→08:48)
[2017-07-27] MEDS: levETIRAcetam 100 MG/ML ORASYR GT SCH ×2 (08:47→21:47)
[2017-07-27] MEDS: ZINC SULF 220 MG CAP GT SCH (08:47)
[2017-07-27] MEDS: FERROUS SULFATE 300 MG/5 ML UDC GT SCH ×2 (08:47→17:26)
--- NOTE | 2017-07-27 08:48 | NUR ---
PATIENT LYING DOWN IN BED SLEEPING, AROUSABLE BY VOICE. NO DISTRESS NOTED. SCHEDULED MEDICATIONS DUE GIVEN. ORAL CARE PROVIDED. SAFETY MEASURES IN PLACE, CALL LIGHT WITHIN REACH. WILL CONTINUE TO MONITOR.
--- NOTE | 2017-07-27 08:54 | NUR ---
10 ML RESIDUAL NOTED FROM GTUBE FEEDING AT 65 ML/HR WITH H20 FLUSH:50 ML Q4. WILL CONTINUE TO MONITOR.
--- NOTE | 2017-07-27 10:30 | NUR ---
ASSISTED LECTURER IN COMPUTER SCIENCE IN CLEANING AND REPOSITIONING PATIENT. NO DISTRESS NOTED. FLACC 0. CONDITION UNCHANGED. SAFETY MEASURES IN PLACE, CALL LIGHT WITHIN REACH. WILL CONTINUE TO MONITOR.
--- NOTE | 2017-07-27 12:32 | NUR ---
RECEIVED ORDER FOR PATIENT TO BE TRANSFERED TO [facility] TO INSERT TUNNELED CATHETER FOR HD. I CALL [facility] AND SPOKE WITH MIREYA. HE SAID HE STILL NEED DR. NAPIER TO CALL HIM ABOUT THIS ADMIT. PER MIREYA REQUEST, FAZED FACE SHEET, ORDER AND H&P TO HIM AT [phone]. I INFORMED DR. RIVERA THAT DR. NAPIER STILL HAS TO CALL [facility].
--- NOTE | 2017-07-27 12:50 | NUR ---
Social Workers Notes: I call [facility] I spoke to May from admissions I discuss patient's status, and Gather more information about Patient. Per May Patient Has a POLTS on chart. Patient has been a resident in their facility for about 4 years. Per May patient is on a [facility] bed [facility] and is welcome to return back to their facility when Patient is ready and clear for discharge.
--- NOTE | 2017-07-27 13:00 | NUR ---
Flask Pusher Notes: I call Mrs. Siobhan Parker at [phone] to discuss Patient's status and to gather Patient's information. I discuss Patient's transfer to [facility] today and Mrs. Parker stated that she was not aware of current status and requested to have MD call her to get an update on patients, conditions, status, and current medical needs. I informed Mrs. Parker that I will foward request to MD. Wan. Mrs. Parker agreed and thanked me for my assistance.
--- NOTE | 2017-07-27 13:10 | NUR ---
PATIENT LYING DOWN IN BED SLEEPING, AROUSABLE BY VOICE. NO DISTRESS NOTED. FLACC 0. SCHEDULED MEDICATIONS DUE GIVEN. WILL CONTINUE TO MONITOR.
--- NOTE | 2017-07-27 15:59 | NUR ---
CALLED [facility] AND SPOKE WITH MIREYA. THE PATIENT CAN GO TO ROOM 103B UNDER DR. NAPIER. CALL REPORT TO [phone]. I CALLED [facility] AND FAXED PCS FORM. THEY WILL COMMERCIAL MANAGER PATIENT AT 7:30P.M. DR. RIVERA CALLED AND HE DID SPEAK WITH THE . INFORMED MARLON YAP ABOUT TRANSFER AND AND COMMERCIAL MANAGER TIME. I ALSO INFORMED HIM WHEN HE GIVES REPORT, TO MAKE SURE THE NURSE AT [facility] CALLS THE .
--- NOTE | 2017-07-27 17:16 | NUR ---
RECEIVED A CALL FROM DR. RIVERA. HE SAID THAT DR. PONCE WANTS TO TRANSFER THE PATIENT TO [place] AND HE WOULD BE THE ADMITTING PHYSICIAN. I SPOKE WITH DR. PONCE AND HE SAID HE CALLED ADMITTING AND THE FACE SHEET AND H&P WERE FAXED TO [facility] ADMITTING. I ALSO SPOKE WITH BARBARA FROM [facility] ADMITTING AND INFORMED HER THAT IF A BED IS AVAILABLE, TO CALL THE FLOOR. GAVE HER THE PHONE NUMBER TO THE FLOOR. I SPOKE WITH DR. RIVERA AND ASKED HIM TO CALL THE TO LET HER KNOW. CALLED [facility] AND CANCELED TRANSPORT TO [place]. CALLED [facility] AND SPOKE WITH MARY ELLEN , PEDIATRIC IMMUNOLOGIST AND INFORMED HER THAT THE TRANSFER TO [place] IS CANCELED. INFORMED KALEE YAP THAT [facility] WILL CALL THE FLOOR WHEN BED AVAILABLE.
[2017-07-27] MEDS: APIXABAN 2.5 MG TAB GT SCH (17:26)
--- NOTE | 2017-07-27 17:30 | NUR ---
PATIENT LYING IN BED SLEEPING, AROUSABLE BY VOICE. NO DISTRESS NOTED. FLACC 0. CONDITION UNCHANGED. SCHEDULED MEDICATIONS DUE GIVEN. SAFETY MEASURES IN PLACE, CALL LIGHT WITHIN REACH. WILL CONTINUE TO MONITOR.
--- NOTE | 2017-07-27 19:35 | NUR ---
GAVE REPORT TO MICROSTRATEGY ARCHITECT NURSE FOR CONTINUITY OF CARE. PATIENT IN STABLE CONDITION.
--- NOTE | 2017-07-27 19:36 | NUR ---
RECEIVED PT AWAKE, APHASIC, WITH TRACH TO VENT WITH SETTING OF 28% FIO2, TV:450 ML, RR:12, PEEP:5, SAT-98%, VITAL SIGNS STABLE, NO SIGNS OF RESPIRATORY DISTRESS, G-TUBE FEEDING ON-GOING, HOB ELEVATED AT ALL TIMES, RT FEMORAL HD CATH IN PLACE, IVF INFUSING WELL VIA RT UA, MAINTAIN ON CONTACT PRECAUTION, REPOSITION Q2H AND OFFLOAD PRESSURES AREAS, SIDE RAILS UP AND PADDED, BED ALARM ON, NEEDS ANTICIPATED.
[2017-07-27] MEDS: ATORVASTATIN 20 MG TAB GT SCH (21:47)
--- NOTE | 2017-07-27 21:50 | NUR ---
SUCTION SECRETION PRN WITH MODERATE WHITISH SECRETION NOTED, BLOOD SUGAR CHECKED WITH 134 RESULT, 20ML G-TUBE RESIDUAL NOTED, DUE MEDS ADMINISTERED, MONITORED CLOSELY.
[2017-07-28] VITALS: BP 114/61
--- NOTE | 2017-07-28 | NUR ---
PT SLEEPING, OPEN EYES TO TOUCH, VITAL SIGNS STABLE, NO SIGNS OF DISTRESS NOTED, IVF INFUSING WELL, CONTINUE TO REPOSITION Q2H AND OFFLOAD PRESSURES AREAS, MONITORED CLOSELY.
[2017-07-28] MEDS: IPRATROPIUM 0.02% 0.5 MG/2.5 ML NEBU INH SCH ×3 (01:18→12:00)
[2017-07-28] MEDS: ALBUTEROL 0.083% 2.5 MG/3 ML NEBU INH SCH ×3 (01:18→12:00)
[2017-07-28] MEDS: DEXT 5% / NACL 0.45% 1,000 ML IV SCH ×2 (02:53→15:15)
[2017-07-28 04:00] VITALS: BP 107/65
--- NOTE | 2017-07-28 04:00 | NUR ---
PT SLEEPING, OPEN EYES TO TOUCH, VITAL SIGNS STABLE, SUCTION SECRETION PRN, REPOSITIONED AND OFFLOAD PRESSURE AREAS, AWAITING BED AVAILABILITY AT [facility], MONITORED CLOSELY.
[2017-07-28] MEDS: CLINDAMYCIN PHOS 600MG/D5W PM 50 ML IV SCH ×2 (04:37→15:31)
[2017-07-28] MEDS: LANSOPRAZOLE 30 MG CAPDR GT SCH (05:38)
--- NOTE | 2017-07-28 05:50 | NUR ---
BLOOD SUGAR CHECKED WITH 134 RESULT, NO COVERAGE NEEDED, 5ML G-TUBE RESIDUAL NOTED, DUE MEDS ADMINISTERED, MONITORED CLOSELY.
[2017-07-28] MEDS: BLOOD GLUCOSE MONITORING 1 DEV DEV FS SCH ×3 (06:34→16:46)
[2017-07-28 07:15] LABS: BASOPHILS % (AUTO) 0.4 % (0.0-2.0); EOSINOPHILS # (AUTO) 0.3 K/uL (0-0.4); EOSINOPHILS % (AUTO) 6.3 % (0.0-4.0); HEMATOCRIT 23.3 % (36-52); HEMOGLOBIN 7.8 g/dL (12.0-18.0); LYMPHOCYTES # (AUTO) 0.7 K/uL (2.0-11.5); LYMPHOCYTES % (AUTO) 15.5 % (20.5-51.1); MEAN CORPUSCULAR HEMOGLOBIN 29 pg (27-31); MEAN CORPUSCULAR HGB CONC 33 g/dL (33-37); MEAN CORPUSCULAR VOLUME 87.3 fL (80-94); MONOCYTES # (AUTO) 0.4 K/uL (0.8-1.0); NEUTROPHILS # (AUTO) 2.9 K/uL (1.8-7.7); NEUTROPHILS % (AUTO) 68.8 % (42.2-75.2); PLATELET COUNT (AUTO) 74 K/uL (140-450); RED BLOOD CELL COUNT(AUTO) 2.67 MIL/uL (4.20-6.10); RED CELL DISTRIBUTION WIDTH 14.2 % (11.6-13.7); WHITE BLOOD COUNT (AUTO) 4.2 K/uL (4.8-10.8)
--- NOTE | 2017-07-28 07:20 | NUR ---
PT SLEEPING, NO SIGNS OF DISTRESS, REPORT GIVEN TO FRACISCO PEREZ FOR CONTINUITY OF CARE.
--- NOTE | 2017-07-28 07:23 | NUR ---
RCV'D PT ON MECHANICAL VENTILATION . PT IS TRACHED WITH PORTEX 9. TRACH IS IN PLACE AND SECURED. VENT IS CONNECTED TO RED OUTLET. ALARMS ARE AUDIBLE. AMBU BAG AT BEDSIDE. HHN TX OF P/A GIVEN WITH NO ADVERSE REACTION. NO SOB OR DISTRESS NOTED. WILL CONTINUE TO MONITOR.
[2017-07-28 07:28] LABS: ANION GAP 15.7 (8-16); CARBON DIOXIDE 23.9 mmol/L (21-32); POTASSIUM 3.6 mmol/L (3.5-5.1)
[2017-07-28 07:35] LABS: MAGNESIUM 2.2 mg/dL (1.8-2.4); PHOSPHORUS 4.5 mg/dL (2.5-4.9)
[2017-07-28 07:39] LABS: CREATININE 8.3 mg/dL (0.7-1.3)
[2017-07-28 08:00] VITALS: BP 132/71
[2017-07-28] MEDS: FERROUS SULFATE 300 MG/5 ML UDC GT SCH ×2 (08:57→16:59)
[2017-07-28] MEDS: ZINC SULF 220 MG CAP GT SCH (08:58)
[2017-07-28] MEDS: levETIRAcetam 100 MG/ML ORASYR GT SCH (08:58)
[2017-07-28] MEDS: LORazepam 1 MG TAB GT SCH (08:58)
[2017-07-28] MEDS: LACTOBACILLUS RHAMNOSUS GG 1 EACH CAP PO SCH ×2 (08:58→08:59)
[2017-07-28] MEDS ORDERED: VANCOMYCIN PER PHARMACY MC PRN (09:00)
[2017-07-28] MEDS ORDERED: VANCOMYCIN 1GM/DEXT 5% PREMIX 200 ML IV SCH (10:00)
--- NOTE | 2017-07-28 10:00 | NUR ---
DR. PONCE MADE AWARE OF CURRENT ABNORMAL LABS, CRITICAL LAB VALUES BUN/CREAT, PLAN FOR HD TODAY. HD NURSE AT HERE, SCHEDULE FOR LATER TODAY.
[2017-07-28 12:00] VITALS: BP 121/71
--- NOTE | 2017-07-28 12:10 | NUR ---
PATIENT STARTED ON HEMODIALYSIS. HD NURSE AT BEDSIDE. NO S/S OF ACUTE DISTRESS NOTED, CONTINUED ON TRACH TO VENT.
--- NOTE | 2017-07-28 15:20 | NUR ---
HD COMPLETED AT BEDSIDE, 2L REMOVED. NO S/S OF ACUTE DISTRESS NOTED.
--- NOTE | 2017-07-28 15:36 | NUR ---
Spoke to Dr Damon regarding transfer to [facility] for the insertion of tunnel cath under interventional radiology. Dr. Damon spoke to warehouse picker Suni and requested ICU bed, spoke to Dr. Chinchilla and she accepted. also Dr. Damon spoke to IR and will do procedure tomorrow. Faxed all papers to Suni at [phone], Suni will call the [facility] for a ICU bed.
[2017-07-28 16:00] VITALS: BP 104/69
[2017-07-28] MEDS ORDERED: CLIN300C2 IV (16:36)
[2017-07-28] MEDS ORDERED: LEVO750T2 IV (16:36)
[2017-07-28] MEDS: APIXABAN 2.5 MG TAB GT SCH (17:00)
--- NOTE | 2017-07-28 17:39 | NUR ---
SBAR REPORT CALLED TO FRACISCO HORTON AT [facility]. PATIENT TO BE TRANSFERRED TO [facility] BY [facility]. [facility] HERE TO TAKE PT, NO S/S OF ACUTE DISTRESS NOTED. PATIENT BEING TRANSFERRED FOR IR PROCEDURE UNDER DR. LIM AND DR. PONCE. PATIENT'S NOTIFIED OF TRANSFER.
== END 2017-07-28 17:45 | disposition short-term general hospital (02) | DRG 314 ==
LOC: MED 18:05 → MTU 20:40
PROVIDERS: ADMIT Family Medicine; ATTEND Family Medicine
PROC: 5A1945Z Respiratory Ventilation, 24-96 Consecutive Hours (ICD-10-PCS; principal; 2017-07-24)
PROC: 0JPV3XZ Removal of Tunneled Vascular Access Device from Upper Extremity Subcutaneous Tissue and Fascia, Percutaneous Approach (ICD-10-PCS; 2017-07-26)
PROC: 05PYX3Z Removal of Infusion Device from Upper Vein, External Approach (ICD-10-PCS; 2017-07-26)
PROC: 06HM33Z Insertion of Infusion Device into Right Femoral Vein, Percutaneous Approach (ICD-10-PCS; 2017-07-26)
PROC: B51B1ZA Fluoroscopy of Right Lower Extremity Veins using Low Osmolar Contrast, Guidance (ICD-10-PCS; 2017-07-26)
PROC: 5A1D70Z Performance of Urinary Filtration, Intermittent, Less than 6 Hours Per Day (ICD-10-PCS; 2017-07-26)
PROC: 5A1D70Z Performance of Urinary Filtration, Intermittent, Less than 6 Hours Per Day (ICD-10-PCS; 2017-07-28)
DX: T82.41XA Breakdown (mechanical) of vascular dialysis catheter, initial encounter (principal); J69.0 Pneumonitis due to inhalation of food and vomit; I50.43 Acute on chronic combined systolic (congestive) and diastolic (congestive) heart failure; N17.0 Acute kidney failure with tubular necrosis; N18.6 End stage renal disease; G93.40 Encephalopathy, unspecified; R53.2 Functional quadriplegia; E87.1 Hypo-osmolality and hyponatremia; J96.10 Chronic respiratory failure, unspecified whether with hypoxia or hypercapnia; Z99.11 Dependence on respirator [ventilator] status; I13.2 Hypertensive heart and chronic kidney disease with heart failure and with stage 5 chronic kidney disease, or end stage renal disease; D68.59 Other primary thrombophilia; T82.818A Embolism due to vascular prosthetic devices, implants and grafts, initial encounter; E83.41 Hypermagnesemia; D63.8 Anemia in other chronic diseases classified elsewhere; E11.22 Type 2 diabetes mellitus with diabetic chronic kidney disease; E78.5 Hyperlipidemia, unspecified; G40.909 Epilepsy, unspecified, not intractable, without status epilepticus; R13.10 Dysphagia, unspecified; Y71.2 Prosthetic and other implants, materials and accessory cardiovascular devices associated with adverse incidents; K21.9 Gastro-esophageal reflux disease without esophagitis; E03.9 Hypothyroidism, unspecified; E11.65 Type 2 diabetes mellitus with hyperglycemia; Z74.01 Bed confinement status; Z86.73 Personal history of transient ischemic attack (TIA), and cerebral infarction without residual deficits; Z93.0 Tracheostomy status; Z93.1 Gastrostomy status; Z99.2 Dependence on renal dialysis; Z88.5 Allergy status to narcotic agent; Y92.89 Other specified places as the place of occurrence of the external cause
CPT/HCPCS: 36415; 36600; 71045; 76001; 80048; 82040; 82150; 82803; 82948; 83036; 83690; 83735; 83880; 84100; 84436; 84439; 84443; 84479; 85025; 85610; 85730; 87070; 87081; 87186; 87205; 89220; 93005; 93925; 93970; 94002; 94003; 94640; 99285; C1750; J0690; J1644; J1815; J1956; J2001; J2250; J3010; J3370; J3490; J7030; J7060; J7613; J7644; Q0092

== ENCOUNTER 2017-08-25 17:25 | Inpatient (IN) | payer OTHER ==
[~2017-08-25] VITALS: Ht 170.2 cm; Wt 63.5 kg
[~2017-08-25 17:25] MED LIST changes: -ACET-8386 GT; +APIX2.5 GT; -ATI.5 GT; +ATOR10TA GT; -ATOR20TA GT; +CLIN300C2 IV; -CODE118S2 GT; +DOCU-299 GT; -FOS500 PO; +LEVO750T2 IV; +LORA-476 GT; -NITR0.4T2 SL; +PANT40EC GT; +SEVE0.8P GT
[2017-08-25 17:44] VITALS: BP 117/75
[2017-08-25 17:49] VITALS: BP 117/75
[2017-08-25 20:06] LABS: PROTHROMBIN TIME 10.3 secs (10.8-13.4)
[2017-08-25 20:36] LABS: BASOPHILS % (AUTO) 0.5 % (0.0-2.0); EOSINOPHILS # (AUTO) 0.4 K/uL (0-0.4); EOSINOPHILS % (AUTO) 6.6 % (0.0-4.0); HEMATOCRIT 25.7 % (36-52); HEMOGLOBIN 8.5 g/dL (12.0-18.0); LYMPHOCYTES # (AUTO) 0.7 K/uL (2.0-11.5); LYMPHOCYTES % (AUTO) 9.9 % (20.5-51.1); MEAN CORPUSCULAR HEMOGLOBIN 29 pg (27-31); MEAN CORPUSCULAR HGB CONC 33 g/dL (33-37); MEAN CORPUSCULAR VOLUME 87.3 fL (80-94); MONOCYTES # (AUTO) 0.4 K/uL (0.8-1.0); MONOCYTES % (AUTO) 5.9 % (1.7-9.3); NEUTROPHILS # (AUTO) 5.2 K/uL (1.8-7.7); NEUTROPHILS % (AUTO) 77.1 % (42.2-75.2); PLATELET COUNT (AUTO) 73 K/uL (140-450); RED BLOOD CELL COUNT(AUTO) 2.95 MIL/uL (4.20-6.10); WHITE BLOOD COUNT (AUTO) 6.8 K/uL (4.8-10.8)
[2017-08-25 21:17] LABS: ALBUMIN 3.3 g/dL (3.4-5.0); ANION GAP 23.1 (8-16); CARBON DIOXIDE 17.7 mmol/L (21-32); POTASSIUM 4.8 mmol/L (3.5-5.1); TOTAL BILIRUBIN 0.5 mg/dL (0.0-1.0)
[2017-08-25 21:19] VITALS: BP 122/74
[2017-08-25 21:25] LABS: CREATININE 10.7 mg/dL (0.7-1.3)
[2017-08-25] MEDS ORDERED: NACL 0.9% 1,000 ML IV ONE (21:30)
[2017-08-25] MEDS ORDERED: NACL 0.9% 1,000 ML IV SCH (22:17)
[2017-08-25] MEDS ORDERED: ONDANSETRON 4 MG/2 ML VIAL IM/IVP PRN (22:20)
[2017-08-25] MEDS ORDERED: LORazepam 2 MG/ML VIAL IM/IVP PRN (22:20)
[2017-08-25] MEDS ORDERED: ZOLPIDEM 5 MG TAB PO PRN (22:20)
[2017-08-25] MEDS ORDERED: DOCUSATE SODIUM 100 MG GELCAP PO PRN (22:20)
[2017-08-25] MEDS ORDERED: DEXTROSE 50% 50 ML SYR IVP PRN (22:55)
[2017-08-25 23:16] LABS: CHOL/HDL RATIO 1.4 (1-4.5); MAGNESIUM 3.3 mg/dL (1.8-2.4); PHOSPHORUS 6.2 mg/dL (2.5-4.9); THYROID STIMULATING HORMONE 1.45 uIU/mL (0.34-3.74)
[2017-08-25] MEDS ORDERED: ALBUTEROL SULFATE/IPRATROPIU 3 ML SOL IH PRN (23:45)
[2017-08-26] VITALS (10 sets, daily range): BP systolic 96–153; BP diastolic 54–77
[2017-08-26] MEDS ORDERED: ACETAMINOPHEN 160 MG/5 ML UDC GT PRN ×2 (00:10)
[2017-08-26] MEDS ORDERED: ALBUTEROL 0.083% 2.5 MG/3 ML NEBU INH PRN (00:10)
[2017-08-26] MEDS ORDERED: DEXTROSE 50% 50 ML SYR IVP PRN (00:10)
[2017-08-26] MEDS ORDERED: SODIUM PHOS / POTASSIUM PHOS 1 PKT PDR PO SCH (00:20)
[2017-08-26] MEDS ORDERED: HYDRAGUARD CREAM TP PRN ×2 (00:40→03:00)
[2017-08-26] MEDS ORDERED: IPRATROPIUM 0.02% 0.5 MG/2.5 ML NEBU INH SCH (06:00)
[2017-08-26] MEDS ORDERED: ALBUTEROL 0.083% 2.5 MG/3 ML NEBU INH SCH (06:00)
[2017-08-26] MEDS ORDERED: PANTOPRAZOLE 40 MG TABEC PO SCH (06:30)
[2017-08-26] MEDS: BLOOD GLUCOSE MONITORING 1 DEV DEV FS SCH ×4 (06:43→21:36)
[2017-08-26] MEDS: ALBUTEROL SULFATE/IPRATROPIU 3 ML SOL IH SCH ×3 (06:55→18:59)
[2017-08-26] MEDS: levETIRAcetam 100 MG/ML ORASYR GT SCH ×2 (08:54→22:17)
[2017-08-26] MEDS: ZINC SULF 220 MG CAP GT SCH (08:54)
[2017-08-26] MEDS: CALCIUM ACETATE 667 MG TAB PO SCH (08:54)
[2017-08-26] MEDS ORDERED: DOCUSATE SODIUM 100 MG GELCAP PO SCH (09:00)
[2017-08-26] MEDS ORDERED: HYDRAGUARD CREAM TP SCH (09:00)
[2017-08-26] MEDS: HYDRAGUARD CREAM TP SCH (13:00)
[2017-08-26] MEDS ORDERED: APIXABAN 2.5 MG TAB GT SCH (17:00)
[2017-08-26] MEDS: DOCUSATE 100 MG/10 ML UDC GT SCH (21:20)
[2017-08-26] MEDS ORDERED: DOCUSATE 100 MG/10 ML UDC GT SCH (22:05)
[2017-08-26] MEDS: ATORVASTATIN 20 MG TAB GT SCH (22:18)
[2017-08-27] VITALS (7 sets, daily range): BP systolic 86–118; BP diastolic 58–73
[2017-08-27] MEDS: HYDRAGUARD CREAM TP SCH ×2 (02:07→12:18)
[2017-08-27] MEDS: BLOOD GLUCOSE MONITORING 1 DEV DEV FS SCH ×4 (05:44→21:07)
[2017-08-27] MEDS: ALBUTEROL SULFATE/IPRATROPIU 3 ML SOL IH SCH ×3 (07:14→20:28)
[2017-08-27 08:39] LABS: MAGNESIUM 3.3 mg/dL (1.8-2.4)
[2017-08-27 08:42] LABS: BASOPHILS % (AUTO) 0.1 % (0.0-2.0); EOSINOPHILS # (AUTO) 0.1 K/uL (0-0.4); EOSINOPHILS % (AUTO) 0.7 % (0.0-4.0); HEMATOCRIT 28.3 % (36-52); HEMOGLOBIN 9.3 g/dL (12.0-18.0); LYMPHOCYTES # (AUTO) 0.5 K/uL (2.0-11.5); LYMPHOCYTES % (AUTO) 3.7 % (20.5-51.1); MEAN CORPUSCULAR HEMOGLOBIN 28 pg (27-31); MEAN CORPUSCULAR HGB CONC 33 g/dL (33-37); MEAN CORPUSCULAR VOLUME 86.7 fL (80-94); NEUTROPHILS # (AUTO) 11.2 K/uL (1.8-7.7); NEUTROPHILS % (AUTO) 87.5 % (42.2-75.2); PLATELET COUNT (AUTO) 69 K/uL (140-450); RED BLOOD CELL COUNT(AUTO) 3.26 MIL/uL (4.20-6.10); RED CELL DISTRIBUTION WIDTH 14.9 % (11.6-13.7); WHITE BLOOD COUNT (AUTO) 12.8 K/uL (4.8-10.8)
[2017-08-27 08:43] LABS: ANION GAP 28.9 (8-16); CARBON DIOXIDE 14.8 mmol/L (21-32)
[2017-08-27 08:48] LABS: CREATININE 13.5 mg/dL (0.7-1.3); POTASSIUM 5.7 mmol/L (3.5-5.1)
[2017-08-27] MEDS: DOCUSATE 100 MG/10 ML UDC GT SCH ×2 (09:27→20:59)
[2017-08-27] MEDS: levETIRAcetam 100 MG/ML ORASYR GT SCH ×2 (09:27→20:59)
[2017-08-27] MEDS: ZINC SULF 220 MG CAP GT SCH (09:28)
[2017-08-27] MEDS: PANTOPRAZOLE 40 MG INJ VIAL IVP SCH (09:28)
[2017-08-27] MEDS: CALCIUM ACETATE 667 MG TAB PO SCH (09:28)
[2017-08-27] MEDS: LORazepam 1 MG TAB GT SCH (09:29)
[2017-08-27] MEDS ORDERED: SODIUM POLYSTYRENE 15 GM/60 ML UDBTL PO SCH (11:10)
[2017-08-27] MEDS ORDERED: DEXTROSE 50% 50 ML SYR IVP SCH (12:00)
[2017-08-27] MEDS ORDERED: INSULIN REGULAR, HUMAN 100 UNIT/ML VIAL IVP SCH ×2 (12:00)
[2017-08-27] MEDS: ACETAMINOPHEN 325 MG TAB PO PRN (12:03)
[2017-08-27] MEDS ORDERED: LIDOCAINE/EPI MPF 1%1:200000 30 ML VIAL INJ ONE (18:42)
[2017-08-27] MEDS ORDERED: BUPIVACAINE-MPF 0.25% 30 ML VIAL INJ ONE (18:42)
[2017-08-27] MEDS ORDERED: fentaNYL 0.05 MG/ML VIAL ONE (19:03)
[2017-08-27] MEDS: ATORVASTATIN 20 MG TAB GT SCH (20:58)
[2017-08-28] VITALS (8 sets, daily range): BP systolic 75–107; BP diastolic 38–64
[2017-08-28] MEDS: HYDRAGUARD CREAM TP SCH ×3 (02:38→23:40)
[2017-08-28] MEDS: ALBUTEROL SULFATE/IPRATROPIU 3 ML SOL IH SCH ×3 (06:59→19:18)
[2017-08-28] MEDS: BLOOD GLUCOSE MONITORING 1 DEV DEV FS SCH ×4 (07:01→21:15)
[2017-08-28 07:13] LABS: BASOPHILS # (AUTO) 0.1 K/uL (0.00-0.22); BASOPHILS % (AUTO) 0.6 % (0.0-2.0); EOSINOPHILS # (AUTO) 0.1 K/uL (0-0.4); EOSINOPHILS % (AUTO) 0.4 % (0.0-4.0); HEMOGLOBIN 8.1 g/dL (12.0-18.0); LYMPHOCYTES # (AUTO) 0.5 K/uL (2.0-11.5); MEAN CORPUSCULAR HEMOGLOBIN 29 pg (27-31); MEAN CORPUSCULAR HGB CONC 34 g/dL (33-37); MEAN CORPUSCULAR VOLUME 86.8 fL (80-94); MONOCYTES % (AUTO) 6.2 % (1.7-9.3); NEUTROPHILS % (AUTO) 89.8 % (42.2-75.2); PLATELET COUNT (AUTO) 62 K/uL (140-450); RED BLOOD CELL COUNT(AUTO) 2.76 MIL/uL (4.20-6.10); RED CELL DISTRIBUTION WIDTH 14.8 % (11.6-13.7); WHITE BLOOD COUNT (AUTO) 16.7 K/uL (4.8-10.8)
[2017-08-28 07:59] LABS: MAGNESIUM 3.1 mg/dL (1.8-2.4); PHOSPHORUS 8.1 mg/dL (2.5-4.9)
[2017-08-28 08:08] LABS: ANION GAP 31.2 (8-16); POTASSIUM 4.2 mmol/L (3.5-5.1)
[2017-08-28 08:11] LABS: CREATININE 15.5 mg/dL (0.7-1.3)
[2017-08-28] MEDS ORDERED: PIPER/TAZO 2.25GM/D5W PREMIX 50 ML IV SCH ×3 (09:23→21:00)
[2017-08-28] MEDS: CALCIUM ACETATE 667 MG TAB PO SCH (09:45)
[2017-08-28] MEDS: DOCUSATE 100 MG/10 ML UDC GT SCH ×2 (09:45→20:53)
[2017-08-28] MEDS: PANTOPRAZOLE 40 MG INJ VIAL IVP SCH (09:45)
[2017-08-28] MEDS: levETIRAcetam 100 MG/ML ORASYR GT SCH ×2 (09:45→20:53)
[2017-08-28] MEDS: ZINC SULF 220 MG CAP GT SCH (09:45)
[2017-08-28] MEDS: ACETAMINOPHEN 325 MG TAB PO PRN (16:07)
[2017-08-28] MEDS ORDERED: NACL 0.9% 1,000 ML IV ONE (17:50)
[2017-08-28] MEDS: MIDODRINE 5 MG TAB GT SCH ×2 (18:44→23:39)
[2017-08-28] MEDS: ATORVASTATIN 20 MG TAB GT SCH (20:54)
[2017-08-28] MEDS: PIPER/TAZO 2.25GM/D5W PREMIX 50 ML IV SCH (23:38)
[2017-08-29] VITALS (16 sets, daily range): BP systolic 82–116; BP diastolic 37–88
[2017-08-29] MEDS ORDERED: PIPERACILLIN/TAZOBACTAM 2.25 GM VIAL IV ONE (05:26)
[2017-08-29] MEDS: PIPER/TAZO 2.25GM/D5W PREMIX 50 ML IV SCH ×3 (05:32→20:31)
[2017-08-29] MEDS: MIDODRINE 5 MG TAB GT SCH ×4 (05:33→23:42)
[2017-08-29] MEDS: BLOOD GLUCOSE MONITORING 1 DEV DEV FS SCH ×4 (06:35→21:57)
[2017-08-29] MEDS: ALBUTEROL SULFATE/IPRATROPIU 3 ML SOL IH SCH ×3 (07:01→19:32)
[2017-08-29 07:52] LABS: BASOPHILS % (AUTO) 0.2 % (0.0-2.0); EOSINOPHILS # (AUTO) 0.1 K/uL (0-0.4); EOSINOPHILS % (AUTO) 0.8 % (0.0-4.0); HEMATOCRIT 23.1 % (36-52); HEMOGLOBIN 7.7 g/dL (12.0-18.0); LYMPHOCYTES # (AUTO) 0.6 K/uL (2.0-11.5); LYMPHOCYTES % (AUTO) 3.7 % (20.5-51.1); MEAN CORPUSCULAR HEMOGLOBIN 29 pg (27-31); MEAN CORPUSCULAR HGB CONC 33 g/dL (33-37); MEAN CORPUSCULAR VOLUME 86.2 fL (80-94); MONOCYTES # (AUTO) 1.6 K/uL (0.8-1.0); MONOCYTES % (AUTO) 10.5 % (1.7-9.3); NEUTROPHILS % (AUTO) 84.8 % (42.2-75.2); PLATELET COUNT (AUTO) 62 K/uL (140-450); RED BLOOD CELL COUNT(AUTO) 2.68 MIL/uL (4.20-6.10); RED CELL DISTRIBUTION WIDTH 14.8 % (11.6-13.7); WHITE BLOOD COUNT (AUTO) 15.3 K/uL (4.8-10.8)
[2017-08-29 08:11] LABS: ANION GAP 27.8 (8-16); CARBON DIOXIDE 16.7 mmol/L (21-32); POTASSIUM 4.5 mmol/L (3.5-5.1)
[2017-08-29 08:14] LABS: MAGNESIUM 2.8 mg/dL (1.8-2.4)
[2017-08-29] MEDS: ZINC SULF 220 MG CAP GT SCH (08:44)
[2017-08-29] MEDS: DOCUSATE 100 MG/10 ML UDC GT SCH ×2 (08:44→20:31)
[2017-08-29] MEDS: CALCIUM ACETATE 667 MG TAB PO SCH (08:44)
[2017-08-29] MEDS: levETIRAcetam 100 MG/ML ORASYR GT SCH ×2 (08:44→20:31)
[2017-08-29] MEDS: PANTOPRAZOLE 40 MG INJ VIAL IVP SCH (08:45)
[2017-08-29] MEDS ORDERED: NACL 0.9% 500 ML IV SCH (10:10)
[2017-08-29] MEDS ORDERED: ALBUMIN HUMAN 25% 100 ML IV SCH (12:00)
[2017-08-29] MEDS: HYDRAGUARD CREAM TP SCH ×2 (13:15→23:42)
[2017-08-29] MEDS: ATORVASTATIN 20 MG TAB GT SCH (20:31)
[2017-08-29] MEDS: INSULIN LISPRO SLIDING SCALE 100 UNITS/ML VIAL SUBQ PRN (22:07)
[2017-08-29] MEDS: ACETAMINOPHEN 325 MG TAB PO PRN (23:57)
[2017-08-30] VITALS (8 sets, daily range): BP systolic 93–107; BP diastolic 51–61
[2017-08-30] MEDS: PIPER/TAZO 2.25GM/D5W PREMIX 50 ML IV SCH (04:58)
[2017-08-30] MEDS: MIDODRINE 5 MG TAB GT SCH ×2 (05:00→12:49)
[2017-08-30] MEDS: BLOOD GLUCOSE MONITORING 1 DEV DEV FS SCH ×3 (05:51→16:55)
[2017-08-30] MEDS: ALBUTEROL SULFATE/IPRATROPIU 3 ML SOL IH SCH ×2 (07:04→14:15)
[2017-08-30] MEDS: PANTOPRAZOLE 40 MG INJ VIAL IVP SCH (08:08)
[2017-08-30] MEDS: levETIRAcetam 100 MG/ML ORASYR GT SCH (08:08)
[2017-08-30] MEDS: CALCIUM ACETATE 667 MG TAB PO SCH (08:09)
[2017-08-30] MEDS: LORazepam 1 MG TAB GT SCH (08:09)
[2017-08-30] MEDS: DOCUSATE 100 MG/10 ML UDC GT SCH (08:09)
[2017-08-30] MEDS: ZINC SULF 220 MG CAP GT SCH (08:09)
[2017-08-30] MEDS ORDERED: AMIKACIN PER PHARMACY MC PRN (08:25)
[2017-08-30 08:34] LABS: BASOPHILS % (AUTO) 0.4 % (0.0-2.0); EOSINOPHILS # (AUTO) 0.1 K/uL (0-0.4); EOSINOPHILS % (AUTO) 0.5 % (0.0-4.0); HEMOGLOBIN 8.4 g/dL (12.0-18.0); LYMPHOCYTES # (AUTO) 0.7 K/uL (2.0-11.5); LYMPHOCYTES % (AUTO) 6.8 % (20.5-51.1); MEAN CORPUSCULAR HEMOGLOBIN 28 pg (27-31); MEAN CORPUSCULAR HGB CONC 33 g/dL (33-37); MEAN CORPUSCULAR VOLUME 87.5 fL (80-94); MONOCYTES # (AUTO) 1.3 K/uL (0.8-1.0); MONOCYTES % (AUTO) 11.6 % (1.7-9.3); NEUTROPHILS # (AUTO) 8.9 K/uL (1.8-7.7); NEUTROPHILS % (AUTO) 80.7 % (42.2-75.2); PLATELET COUNT (AUTO) 63 K/uL (140-450); RED BLOOD CELL COUNT(AUTO) 2.97 MIL/uL (4.20-6.10); RED CELL DISTRIBUTION WIDTH 14.7 % (11.6-13.7); WHITE BLOOD COUNT (AUTO) 11.1 K/uL (4.8-10.8)
[2017-08-30 08:45] LABS: ANION GAP 14.9 (8-16); CARBON DIOXIDE 29.4 mmol/L (21-32); POTASSIUM 3.3 mmol/L (3.5-5.1)
[2017-08-30 08:46] LABS: MAGNESIUM 2.1 mg/dL (1.8-2.4); PHOSPHORUS 4.2 mg/dL (2.5-4.9)
[2017-08-30 08:47] LABS: CREATININE 8.1 mg/dL (0.7-1.3)
[2017-08-30] MEDS ORDERED: ALBUMIN HUMAN 25% 100 ML IV SCH (10:39)
[2017-08-30] MEDS: HYDRAGUARD CREAM TP SCH (12:53)
[2017-08-30] MEDS ORDERED: PHO667 PO (13:28)
[2017-08-30] MEDS ORDERED: Hydraguard TP (13:28)
[2017-08-30] MEDS ORDERED: PRO5 GT (13:28)
[2017-08-30] MEDS ORDERED: LACT10SO1 PO (13:28)
[2017-08-30] MEDS ORDERED: Amikacin Per Pharmacy MC (13:28)
[2017-08-30] MEDS ORDERED: AMIKACIN 400 MG in DEXTROSE 5% 100 ML IV SCH (14:00)
[2017-08-30] MEDS ORDERED: Z-GUARD PASTE TP PRN (14:15)
[2017-08-30] MEDS: INSULIN LISPRO SLIDING SCALE 100 UNITS/ML VIAL SUBQ PRN (16:55)
[2017-08-30] MEDS: ACETAMINOPHEN 325 MG TAB PO PRN (17:22)
== END 2017-08-30 18:40 | DRG 314 ==
LOC: MED 17:25 → MTU 22:17 → MIC 23:27 → MTU 08-26 09:40
PROVIDERS: ADMIT General Practice; ATTEND General Practice
PROC: 5A1955Z Respiratory Ventilation, Greater than 96 Consecutive Hours (ICD-10-PCS; 2017-08-25)
PROC: 5A1D70Z Performance of Urinary Filtration, Intermittent, Less than 6 Hours Per Day (ICD-10-PCS; principal; 2017-08-26)
PROC: 06HM33Z Insertion of Infusion Device into Right Femoral Vein, Percutaneous Approach (ICD-10-PCS; 2017-08-26)
PROC: 0JPW0XZ Removal of Tunneled Vascular Access Device from Lower Extremity Subcutaneous Tissue and Fascia, Open Approach (ICD-10-PCS; 2017-08-26)
PROC: 06PYX3Z Removal of Infusion Device from Lower Vein, External Approach (ICD-10-PCS; 2017-08-26)
PROC: 05HN33Z Insertion of Infusion Device into Left Internal Jugular Vein, Percutaneous Approach (ICD-10-PCS; 2017-08-27)
PROC: B544ZZA Ultrasonography of Left Jugular Veins, Guidance (ICD-10-PCS; 2017-08-27)
PROC: 06HN33Z Insertion of Infusion Device into Left Femoral Vein, Percutaneous Approach (ICD-10-PCS; 2017-08-27)
PROC: B54CZZA Ultrasonography of Left Lower Extremity Veins, Guidance (ICD-10-PCS; 2017-08-27)
PROC: 05HM33Z Insertion of Infusion Device into Right Internal Jugular Vein, Percutaneous Approach (ICD-10-PCS; 2017-08-27)
PROC: B543ZZA Ultrasonography of Right Jugular Veins, Guidance (ICD-10-PCS; 2017-08-27)
PROC: 5A1D70Z Performance of Urinary Filtration, Intermittent, Less than 6 Hours Per Day (ICD-10-PCS; 2017-08-28)
PROC: 5A1D70Z Performance of Urinary Filtration, Intermittent, Less than 6 Hours Per Day (ICD-10-PCS; 2017-08-29)
PROC: 5A1D70Z Performance of Urinary Filtration, Intermittent, Less than 6 Hours Per Day (ICD-10-PCS; 2017-08-30)
DX: T82.41XA Breakdown (mechanical) of vascular dialysis catheter, initial encounter (principal); N17.0 Acute kidney failure with tubular necrosis; G82.50 Quadriplegia, unspecified; G93.40 Encephalopathy, unspecified; N18.6 End stage renal disease; J69.0 Pneumonitis due to inhalation of food and vomit; J96.10 Chronic respiratory failure, unspecified whether with hypoxia or hypercapnia; D68.59 Other primary thrombophilia; E87.1 Hypo-osmolality and hyponatremia; E44.1 Mild protein-calorie malnutrition; Z99.11 Dependence on respirator [ventilator] status; I12.0 Hypertensive chronic kidney disease with stage 5 chronic kidney disease or end stage renal disease; E83.39 Other disorders of phosphorus metabolism; L89.151 Pressure ulcer of sacral region, stage 1; K21.9 Gastro-esophageal reflux disease without esophagitis; Z99.2 Dependence on renal dialysis; E11.65 Type 2 diabetes mellitus with hyperglycemia; E87.8 Other disorders of electrolyte and fluid balance, not elsewhere classified; G40.909 Epilepsy, unspecified, not intractable, without status epilepticus; E83.41 Hypermagnesemia; D63.8 Anemia in other chronic diseases classified elsewhere; E11.22 Type 2 diabetes mellitus with diabetic chronic kidney disease; E78.5 Hyperlipidemia, unspecified; Z86.73 Personal history of transient ischemic attack (TIA), and cerebral infarction without residual deficits; Z74.01 Bed confinement status; Z93.0 Tracheostomy status; Z93.1 Gastrostomy status; Z88.6 Allergy status to analgesic agent; Z68.21 Body mass index [BMI] 21.0-21.9, adult; Y83.8 Other surgical procedures as the cause of abnormal reaction of the patient, or of later complication, without mention of misadventure at the time of the procedure; Y92.89 Other specified places as the place of occurrence of the external cause
CPT/HCPCS: 36415; 71045; 74018; 80048; 80053; 82948; 83036; 83690; 83735; 83880; 84100; 84134; 84443; 84484; 85025; 85610; 85730; 87040; 87070; 87081; 87186; 87205; 89220; 90935; 93005; 93970; 94003; 94640; 97799; 99285; C9113; J0278; J1644; J1815; J2001; J2543; J3010; J3490; J7030; J7060; J7620; P9046; Q0092

== ENCOUNTER 2017-09-10 14:27 | Inpatient (IN) | payer OTHER ==
[2017-09-10] VITALS (7 sets, daily range): BP systolic 94–122; BP diastolic 45–71
[~2017-09-10] VITALS: Ht 154.9 cm; Wt 76.2 kg
[~2017-09-10 14:27] MED LIST changes: +Amikacin Per Pharmacy MC; -CLIN300C2 IV; -D50SYR IV; -DOCU-299 GT; +Hydraguard TP; +LACT10SO1 PO; -LEVO750T2 IV; -MULT15LI1 GT; +PHO667 PO; +PRO5 GT; -[UNRECOGNIZED DRUG - CODE] PO
--- NOTE | 2017-09-10 14:27 | NUR ---
pt biba als to er bed 10
--- NOTE | 2017-09-10 14:35 | NUR ---
STAFF/CONTINUOUS IMPROVEMENT CONSULTANT,SENT FROM [facility] [place]. FOR HBG.6.5 DRAWN YESTERDAY FROM DIALYSIS. DIALYSIS DAYS, .,,SAT. LT. FEMORAL DIALYSIS ACCESS. WOUNDS,SPUTUM MDRO. GTUBE,RESP. FAILURE,SEIZURE,ESRD,ANEMIA,TRACH,CHRONIC RESP. FAILURE.VENT. SETTINGS AC 12,TV 450,PEEP 5 FIO2 28%.
[2017-09-10] MEDS ORDERED: cefTRIAXone 1,000 MG in DEXT 5% MINI-BAG PLUS 50 ML IV ONE (14:50)
[2017-09-10] MEDS ORDERED: ACETAMINOPHEN 650 MG SUPP RC ONE ×2 (15:05→15:12)
[2017-09-10] MEDS ORDERED: cefTRIAXone 1,000 MG VIAL ONE (15:10)
[2017-09-10 15:40] LABS: BASOPHILS % (AUTO) 0.2 % (0.0-2.0); EOSINOPHILS # (AUTO) 0.1 K/uL (0-0.4); MEAN CORPUSCULAR VOLUME 86.5 fL (80-94); PLATELET COUNT (AUTO) 168 K/uL (140-450); WHITE BLOOD COUNT (AUTO) 11.1 K/uL (4.8-10.8)
[2017-09-10 15:47] LABS: EOSINOPHILS % (AUTO) 0.5 % (0.0-4.0); LYMPHOCYTES # (AUTO) 0.4 K/uL (2.0-11.5); LYMPHOCYTES % (AUTO) 3.5 % (20.5-51.1); MEAN CORPUSCULAR HEMOGLOBIN 28 pg (27-31); MEAN CORPUSCULAR HGB CONC 32 g/dL (33-37); MONOCYTES # (AUTO) 1.4 K/uL (0.8-1.0); MONOCYTES % (AUTO) 12.8 % (1.7-9.3); NEUTROPHILS # (AUTO) 9.3 K/uL (1.8-7.7); RED CELL DISTRIBUTION WIDTH 14.2 % (11.6-13.7)
[2017-09-10 15:51] LABS: HEMATOCRIT 18.2 % (36-52); HEMOGLOBIN 5.9 g/dL (12.0-18.0)
[2017-09-10 16:13] LABS: ALBUMIN 2.1 g/dL (3.4-5.0); ANION GAP 13.9 (8-16); CARBON DIOXIDE 25.9 mmol/L (21-32); POTASSIUM 3.8 mmol/L (3.5-5.1); TOTAL BILIRUBIN 0.8 mg/dL (0.0-1.0)
[2017-09-10 16:18] LABS: CREATININE 5.7 mg/dL (0.7-1.3)
[2017-09-10] MEDS ORDERED: NACL 0.9% 1,000 ML IV ONE (16:55)
--- NOTE | 2017-09-10 17:02 | NUR ---
STRAIGHT CATH INSERTED WITH NO OUTPUT; REPLACED WITH ANGULO CATH TO MONITOR FLUID OUTPUT AND URINE SPECIMEN
[2017-09-10] MEDS ORDERED: ONDANSETRON 4 MG/2 ML VIAL IM/IVP PRN (17:20)
[2017-09-10] MEDS ORDERED: DOCUSATE 100 MG/10 ML UDC PO PRN (17:20)
[2017-09-10] MEDS ORDERED: LORazepam 2 MG/ML VIAL IM/IVP PRN (17:20)
[2017-09-10] MEDS ORDERED: ZOLPIDEM 5 MG TAB PO PRN (17:20)
--- NOTE | 2017-09-10 18:00 | NUR ---
RECEIVED PT TRANSFERRED FROM ER VIA GURNEY, REPORT OBTAINED AT BEDSIDE, PT IS OPEN EYES ONLY, NON-VERBAL, UNABLE TO FOLLOW COMMANDS AND MAKE NEEDS KNOWN, TRACH TO VENT WITH SETTING FIO2 28, TV 450, R 12, PEEP 5, NO S/S OF DISTRESS, CLEAR LUNG SOUNDS CHRISSY. SR ON INFORMATICS CONSULTANT, GT IN PLACE, SMALL AMOUNT OF BLEEDING NOTED TO STOMA, F/C IN PLACE, ANURIA NOTED, ON HD, DIALYSIS ACCESS TO LEFT FEMORAL, BLEEDING NOTED TO SITE. SEVERE WEAKNESS TO ALL EXTREMITIES, SKIN IS WARM AND DRY TO TOUCH, OPEN WOUND TO RIGHT BUTTOCKS, WOUND SITE MEASURED AND WOUND CARE PROVIDED, PERIPHERAL LINE TO RIGHT HAND, 22GA, PATENT AND SL. FLACC 0, VSS, HOB ELEVATED TO 30 DEGREES, PLACED PT TO COMFORT POSITION, SAFETY MEASURES IN PLACE, WILL CONTINUE TO MONITOR.
--- NOTE | 2017-09-10 18:02 | NUR ---
Patient will be admitted to care of Dr Perez admited to ICU8. Belongings list completed. Report to FRACISCO ROBERTS
[2017-09-10 18:19] LABS: CHOL/HDL RATIO 3.5 (1-4.5); MAGNESIUM 2.2 mg/dL (1.8-2.4); PHOSPHORUS 3.6 mg/dL (2.5-4.9); THYROID STIMULATING HORMONE 2.15 uIU/mL (0.34-3.74)
[2017-09-10] MEDS: NACL 0.9% 1,000 ML IV SCH (18:29)
--- NOTE | 2017-09-10 19:09 | NUR ---
REPORT GIVEN TO CAREER GUIDANCE COUNSELOR RN AT BEDSIDE FOR CONTINUE OF CARE, PT IS IN STABLE CONDITION AT THIS TIME.
--- NOTE | 2017-09-10 19:14 | NUR ---
SPOKE TO PT CONTACT, SYLVIA KING. RECEIVED TELEPHONE CONSENT FOR PT TO RECEIVED BLOOD PRODUCTS. CONFIRMED BY ANOTHER NURSE.
--- NOTE | 2017-09-10 19:30 | NUR ---
RECEIVED REPORT FROM MORNING SHIFT RN FOR CONTINUITY OF CARE. AFEBRILE, VSS, PT IS NONVERBAL AT BASELINE, ABLE TO OPEN EYES AND RESPONDS TO PAIN. LUNG SOUND DIMINISHED IN UPPER AND LOWER BILATERAL LOBES ON AUSCULTATION. TRACH TO VENT, SETTINGS A/C FIO2=28, OI=671, RATE12, FLOW 50L/MIN, PEEP=5, PMAX 50. G TUBE NOTED IN LEFT QUADRANT, PT IS NPO EXCEPT MEDS, NO FEEDING AT THIS TIME. PT IS ANURIC, ANGULO CATHETER IN PLACE. NORMAL SINUS RHYTHM ON MONITOR. 22 GAUGE RIGHT HAND PERIPHERAL IV, NS INFUSING AT 60ML/HR. DIALYSIS CATHETER NOTED ON LEFT GROIN. SKIN IS DRY, NON-INTACT, WITH WOUND ON RIGHT SACRAL AND AND RIGHT BUTTOCKS NOTED. HOB ELEVATED ABOVE 30 DEG, BED IN LOWEST POSITION.
--- NOTE | 2017-09-10 19:41 | NUR ---
CALLED DR. VIRGEN REGARDING INABILITY TO OBTAIN NEW SITE FOR IV. PT CURRENTLY HAS A SOLE 22 GAUGE IN RIGHT HAND INFUSING NS AT 60ML/HR. DR. SASKIA SHERMAN.
[2017-09-10] MEDS ORDERED: Z-GUARD PASTE TP ONE (19:50)
--- NOTE | 2017-09-10 19:58 | NUR ---
SPOKE TO DR. AMBRIZ, ORDERED TO GIVE BLOOD PRODUCT SLOWLY WITH FLUIDS THROUGH RIGHT HAND 22 GAUGE PIV.
--- NOTE | 2017-09-10 20:04 | NUR ---
CALLED [facility]IDENTS AND SPOKE WITH DR. AMBRIZ; CLARIFIED IF WILL CONTINUE TO TREND TROPONIN. NEXT ORDER FOR TROPONIN TO BE ADDED.
[2017-09-10] MEDS ORDERED: ACETAMINOPHEN 160 MG/5 ML UDC GT PRN (20:25)
[2017-09-10] MEDS ORDERED: INSULIN LISPRO SLIDING SCALE 100 UNITS/ML VIAL SUBQ PRN (20:25)
--- NOTE | 2017-09-10 21:10 | NUR ---
INFUSING PACK RED BLOOD CELLS AT THIS TIME.
--- NOTE | 2017-09-10 21:30 | NUR ---
VAP ORAL CARE AND SUCTIONING PROVIDED TO PATIENT AT BEDSIDE.
[2017-09-10] MEDS: ATORVASTATIN 20 MG TAB GT SCH (21:42)
[2017-09-10] MEDS ORDERED: levETIRAcetam 500 MG TAB ONE (21:53)
[2017-09-10] MEDS ORDERED: AZITHROMYCIN 250 MG TAB ONE (21:54)
[2017-09-10] MEDS ORDERED: levETIRAcetam 100 MG/ML ORASYR ONE (22:12)
[2017-09-10] MEDS: AZITHROMYCIN 250 MG TAB GT SCH (22:13)
[2017-09-10] MEDS: levETIRAcetam 100 MG/ML ORASYR GT SCH (22:27)
--- NOTE | 2017-09-10 22:30 | NUR ---
PRBC INFUSING, CURRENTLY NO REACTIONS AT THIS TIME.
--- NOTE | 2017-09-10 23:12 | NUR ---
CALLED RESIDENT DOCTORS AND SPOKE WITH DR AMBRIZ. CLARIFIED PT'S STATUS, ACCORDING TO HER PT IS STILL ICU STATUS AND CRITICAL CARE DOCTOR HAS BEEN NOTIFIED REGARDING CONSULT. ASKED DR AMBRIZ TOO IF SHE WANTED CBC TO BE REDRAWN POST BLOOD TRANSFUSION, PER HER INSTRUCTION, NOTIFY THEM WHEN TRANSFUSION IS COMPLETED. ALSO, MORNING LABS OKAY TO BE DRAWN WITH NEXT TROPONIN PER DR AMBRIZ.
[2017-09-10] MEDS: ACETAMINOPHEN 650 MG/20.3 ML UDC PO PRN (23:21)
[2017-09-10] MEDS: BLOOD GLUCOSE MONITORING 1 DEV DEV FS SCH (23:21)
--- NOTE | 2017-09-10 23:42 | NUR ---
CAROL FROM LAB, AT BEDSIDE FOR BLOOD DRAW.
[2017-09-11] VITALS (23 sets, daily range): BP systolic 90–120; BP diastolic 51–78
[2017-09-11] MEDS: MIDODRINE 5 MG TAB GT SCH ×4 (00:19→18:16)
--- NOTE | 2017-09-11 00:28 | NUR ---
PRBC INFUSION COMPLETED AT THIS TIME.
--- NOTE | 2017-09-11 00:46 | NUR ---
RECEIVED CALL FROM DEBRA IN LAB, INFORMED TROPONIN TRENDING DOWN (0.086).
--- NOTE | 2017-09-11 00:50 | NUR ---
CALLED DR. AMBRIZ AND INFORMED REGARDING TROPONIN LAB VALUE TRENDING DOWN AND COMPLETION OF BLOOD TRANSFUSION, WILL FOLLOW UP WITH ORDERS.
[2017-09-11 02:51] LABS: HEMATOCRIT 21.9 % (36-52); HEMOGLOBIN 7.6 g/dL (12.0-18.0); MEAN CORPUSCULAR HEMOGLOBIN 31 pg (27-31); MEAN CORPUSCULAR HGB CONC 35 g/dL (33-37); MEAN CORPUSCULAR VOLUME 88.2 fL (80-94); PLATELET COUNT (AUTO) 199 K/uL (140-450); RED BLOOD CELL COUNT(AUTO) 2.49 MIL/uL (4.20-6.10); RED CELL DISTRIBUTION WIDTH 13.7 % (11.6-13.7)
[2017-09-11 02:52] LABS: BASOPHILS # (AUTO) 0.1 K/uL (0.00-0.22); BASOPHILS % (AUTO) 1.1 % (0.0-2.0); EOSINOPHILS # (AUTO) 0.1 K/uL (0-0.4); EOSINOPHILS % (AUTO) 0.8 % (0.0-4.0); LYMPHOCYTES # (AUTO) 0.4 K/uL (2.0-11.5); LYMPHOCYTES % (AUTO) 3.1 % (20.5-51.1); MONOCYTES % (AUTO) 8.2 % (1.7-9.3); NEUTROPHILS # (AUTO) 10.4 K/uL (1.8-7.7)
[2017-09-11 02:53] LABS: NEUTROPHILS % (AUTO) 86.8 % (42.2-75.2)
--- NOTE | 2017-09-11 03:35 | NUR ---
DR. VIRGEN AT BEDSIDE TO SEE PT. INFORMED HER REGARDING CHANGES IN PT CONDITION. WILL FOLLOW-UP WITH ANY NEW ORDER.
--- NOTE | 2017-09-11 03:39 | NUR ---
CALLED DR. AMBRIZ AND INFORMED HER REGARDING RESULT FOR CBC POST BLOOD TRANSFUSION.
--- NOTE | 2017-09-11 04:05 | NUR ---
PROVIDED VAP ORAL CARE TO PT AT BEDSIDE. Q
--- NOTE | 2017-09-11 06:07 | NUR ---
CALLED LAB AND SPOKE WITH KYLAH, INFORMED HER THAT THERE IS AN ORDER FOR TROPONIN AT 0700
--- NOTE | 2017-09-11 06:23 | NUR ---
PATIENT HAS BEEN SCREENED AND CATEGORIZED HIGH NUTRITION RISK. PATIENT WILL BE SEEN WITHIN 1-2 DAYS OF ADMISSION. 09/11/17-09/12/17 SAFIA RO MS, RDN
[2017-09-11] MEDS: BLOOD GLUCOSE MONITORING 1 DEV DEV FS SCH ×3 (06:36→18:23)
[2017-09-11] MEDS: PANTOPRAZOLE 40 MG TABEC PO SCH (06:36)
--- NOTE | 2017-09-11 06:46 | NUR ---
RECEIVED A CALL FROM PHARMACY AND SPOKE WITH ANNE. THEY ARE RECOMMENDING FOR PT TO TAKE ELIQUIS 5MG BID D/T HX OF CVA AND SEIZURES. RECOMMENDATION TO BE FOLLOWED-UP WITH ATTENDING. WILL ALSO ENDORSE TO THE NEXT SHIFT
--- NOTE | 2017-09-11 07:30 | NUR ---
RECEIVED REPORT FROM NIGHT NURSEKILEY. PT NO VERBAL. SPONTANEOUS EYE OPENING. TRACH TO VENT. PUPILS FIXED. SKIN DRY AND WARM. CLEAR LUNG SOUNDS, S1S2 HEARD. ACTIVE BOWEL SOUNDS. G TUBE IN PLACE FEEDING RUNNING. SKIN OPEN ON BUTTOCKS SEEMS TO BE HEALING. IV FLUSHED PATENT AND ASYMPTOMATIC.MINIMAL EDEMA PRESENT ON BOTH FEET. SINUS RHYTHM ON MONITOR. WILL CONTINUE TO MONITOR.
--- NOTE | 2017-09-11 07:32 | NUR ---
PROVIDED BEDSIDE REPORT TO MORNING SHIFT RN
--- NOTE | 2017-09-11 08:38 | NUR ---
RECEIVED TRACH PT WITH A PORTEX 9 TRACH ON VENT. SETTINGS AC 12, VT 450, PEEP 5 AND FIO2 28%. TRACH IS SECURE WITH A PATENT AIRWAY. VENT IS PLUGGED INTO A RED OUTLET WITH ALARMS ON AND FUNCTIONING. PT IS NOT SOB AND NOT IN RESPIRATORY DISTRESS AT THIS TIME. WILL CONTINUE TO MONITOR.
[2017-09-11 09:11] LABS: BASOPHILS % (AUTO) 0.2 % (0.0-2.0); EOSINOPHILS # (AUTO) 0.1 K/uL (0-0.4); EOSINOPHILS % (AUTO) 0.8 % (0.0-4.0); LYMPHOCYTES # (AUTO) 0.3 K/uL (2.0-11.5); MEAN CORPUSCULAR HEMOGLOBIN 30 pg (27-31); MEAN CORPUSCULAR HGB CONC 34 g/dL (33-37); MEAN CORPUSCULAR VOLUME 86.8 fL (80-94); MONOCYTES # (AUTO) 1.2 K/uL (0.8-1.0); MONOCYTES % (AUTO) 11.3 % (1.7-9.3); NEUTROPHILS # (AUTO) 9.2 K/uL (1.8-7.7); NEUTROPHILS % (AUTO) 84.7 % (42.2-75.2); PLATELET COUNT (AUTO) 174 K/uL (140-450); RED BLOOD CELL COUNT(AUTO) 2.32 MIL/uL (4.20-6.10); RED CELL DISTRIBUTION WIDTH 14.5 % (11.6-13.7); WHITE BLOOD COUNT (AUTO) 10.9 K/uL (4.8-10.8)
[2017-09-11 09:21] LABS: HEMATOCRIT 20.1 % (36-52); HEMOGLOBIN 6.9 g/dL (12.0-18.0)
[2017-09-11 09:38] LABS: MAGNESIUM 2.3 mg/dL (1.8-2.4); PHOSPHORUS 4.8 mg/dL (2.5-4.9)
[2017-09-11] MEDS: LACTOBACILLUS RHAMNOSUS GG 1 EACH CAP PO SCH (09:40)
[2017-09-11] MEDS: levETIRAcetam 100 MG/ML ORASYR GT SCH ×2 (09:40→21:59)
--- NOTE | 2017-09-11 09:50 | NUR ---
PT SLEEPING IN BED COMFORTABLY. NO ACUTE DISTRESS NOTED. NO CHANGE IN LOC. WILL CONTINUE TO MONITOR.
[2017-09-11] MEDS ORDERED: ALBUTEROL SULFATE/IPRATROPIU 3 ML SOL IH PRN (10:00)
[2017-09-11 10:01] LABS: ANION GAP 14.9 (8-16); CARBON DIOXIDE 23.1 mmol/L (21-32)
[2017-09-11 10:14] LABS: CREATININE 6.5 mg/dL (0.7-1.3)
--- NOTE | 2017-09-11 10:24 | NUR ---
RECEIVED ON A [employer] R860 VENTILATOR PLUGGED INTO RED OUTLET TOLERATING WELL WITHOUT ADVERSE REACTIONS NOTED TO A PORTEX DCT #9 AIRWAY SECURED WITH A YAN TRAC TIE CUFF PRESSURE CHECKED NOTED AMBU BAG NOTED AT HOB RESTING WELL NO SOB NOTED BREATH SOUNDS DECREASED RIGHT SIDE DIMINISHED AT LEFT SIDE GOOD CHEST RISE AIRWAY PATENT
--- NOTE | 2017-09-11 10:46 | NUR ---
09/11/17 RD INITIAL ASSESSMENT COMPLETED PLEASE REFER TO NUTRITION ASSESSMENT UNDER CARE ACTIVITY FOR ESTIMATED NUTRITIONAL NEEDS. RD RECOMMENDATIONS: 1. CONTINUE TUBE FEEDING OF NEPRO AT 45 ML/HR TOLERATED. THIS MEETS 97% ESTIMATED KCAL AND 96% ESTIMATED PROTEIN NEEDS; ADEQUATE. 2. CONSULT RDN PRN. 3. RD WILL F/U 2-3 DAYS; HIGH RISK. SAFIA RO, MS, RDN
--- NOTE | 2017-09-11 11:18 | NUR ---
HELD G-TUBE FEEDING FOR US ABDOMEN PER US TECH. CHARGE NURSE MADE AWARE. DC'D ANGULO CATHETER PER ORDER. CARE PROVIDED NEEDED. KEPT PT CLEAN AND ON COMFORTABLE POSITION.
--- NOTE | 2017-09-11 11:49 | NUR ---
NO PULMONARY DISTRESS NOTED AT THIS TIME DEEP TRACHEAL SUCTION FOR SMALL THIN YELLOW SECRETIONS AIRWAY PATENT
[2017-09-11] MEDS ORDERED: Z-GUARD PASTE TP PRN (12:05)
--- NOTE | 2017-09-11 12:18 | NUR ---
DR. FELICIANO AND RESIDENTS IN TO SEE PT. MADE AWARE ABOUT HB 6.9.
[2017-09-11] MEDS: ALBUTEROL SULFATE/IPRATROPIU 3 ML SOL IH SCH ×2 (12:59→19:00)
--- NOTE | 2017-09-11 12:59 | NUR ---
NO EVIDENCE OF PULMONARY DISTRESS NOTED GOOD CHEST RISE AIRWAY PATENT ORAL SUCTION FOR LARGE CLEAR "SALIVA" SECRETIONS
[2017-09-11] MEDS ORDERED: ALBUTEROL SULFATE/IPRATROPIU 3 ML SOL IH SCH (13:00)
[2017-09-11] MEDS: Z-GUARD PASTE TP SCH (13:00)
--- NOTE | 2017-09-11 13:02 | NUR ---
DR. BARRON AT BESIDE, SEEN AND EXAMINED PATIENT. WITH ORDERS TO TRANSFUSE 2 UNITS PRBC DURING DIALYSIS, GI CONSULT. WILL FOLLOW UP WITH OTHER ORDERS.
[2017-09-11] MEDS ORDERED: EPOETIN ALFA 10,000 UNITS/ML VIAL SUBQ SCH ×2 (13:05→13:15)
--- NOTE | 2017-09-11 13:06 | NUR ---
MARTHA GUILLAUME MADE AWARE ABOUT DIALYSIS ORDER.
--- NOTE | 2017-09-11 13:50 | NUR ---
DIALYSIS NURSE AT BEDSIDE. SHE INFORMED US THAT DIALYSIS ACCESS IN NOT FUNCTIONING. DR. BARRON PAGED AND CALLED BACK, MADE AWARE. WITH RECOMMENDATIONS TO RESIDENT PHYSICIAN DR. CHEUNG TO GET SURGICAL CONSULT FOR ANA LUISA INSERTION. DR. CHEUNG MADE AWARE, SHE STATED SHE WILL CONTACT DR. CAMARA
[2017-09-11] MEDS: NACL 0.9% 1,000 ML IV SCH (14:56)
--- NOTE | 2017-09-11 15:10 | NUR ---
RESIDENT PHYSICIAN DR. CHEUNG MADE AWARE OF TEMP 100.6 PRIOR TO BLOOD TRANSFUSION. X1 ORDER FOR TYLENOL OBTAINED. WILL CONTINUE TO MONITOR PATIENT.
--- NOTE | 2017-09-11 15:10 | NUR ---
PER DR. SKYE CAMARA IS NOT AVAILABLE TO INSERT ANA LUISA CATH AND RECOMMEND TRANSFER TO HIGHER LEVEL OF CARE. WILL FOLLOW UP.
[2017-09-11] MEDS ORDERED: ACETAMINOPHEN 325 MG TAB PO SCH (15:15)
--- NOTE | 2017-09-11 15:20 | NUR ---
TEMPERATURE SPIKE UP TO 101.1. EXTRA CLOTHES REMOVED. STARTED COLD SPONGING. TYLENOL 625 MG ADMINISTERED PER ORDERED. DR. BARRY MADE AWARE.
[2017-09-11] MEDS ORDERED: APIXABAN 2.5 MG TAB GT SCH (17:00)
--- NOTE | 2017-09-11 17:00 | NUR ---
TEMPERATURE DECREASED TO 98.8, HR 73 BP 104/65 SPO2 94%. BLOOD TRANSFUSION STARTED. PT ON CONTINUOUS MONITORING.
[2017-09-11] MEDS ORDERED: KETOROLAC 15 MG/ML VIAL IVP PRN (17:05)
--- NOTE | 2017-09-11 17:15 | NUR ---
T 98.1, HR 72 RR 16 BP 103/61 SPO2 94%. NO BT REACTION NOTED. NO ACUTE RESPIRATORY DISTRESS NOTED. CONTINUE TO MONITOR.
[2017-09-11] MEDS ORDERED: ACETAMINOPHEN 325 MG SUPP RC SCH (17:30)
--- NOTE | 2017-09-11 17:30 | NUR ---
NO CHANGE IN LOC. PT SLEEPING IN BED COMFORTABLE. RT AT BEDSIDE.
--- NOTE | 2017-09-11 17:30 | NUR ---
TEMPERATURE WITHIN NORMAL PARAMETER TYLENOL SUPPOSITORY NOT ADMINISTERED.
--- NOTE | 2017-09-11 17:45 | NUR ---
TRANSFER PT VIA WHEELCHAIR. SAFELY IN STABLE CONDITION. ALL PT BELONGINGS AND PTS CHART DELIVERED TO MED SURG FLOOR NURSES. Addendum: 09/11/17 at 1756 by Yesenia Cabral RN WRONG ENTRY.
--- NOTE | 2017-09-11 17:45 | NUR ---
US ABDOMEN COMPLETED. RESIDUAL 50 ML. RESUMED FEEDING. KEPT HOB ELEVATED.
--- NOTE | 2017-09-11 17:50 | NUR ---
NO DISTRESS NOTED GOOD CHEST RISE DEEP TRACHEAL SUCTION FOR SCANT THIN PALE YELLOW SECRETIONS AIRWAY PATENT
--- NOTE | 2017-09-11 18:23 | NUR ---
ADMINISTERED MEDICINE ORDERED. TOLERATING WELL. NO CHANGE IN CONDITION. TEMP 97.4.
--- NOTE | 2017-09-11 19:18 | NUR ---
GAVE REPORT TO KILEY. PT JAREK.
--- NOTE | 2017-09-11 19:30 | NUR ---
RECEIVED REPORT FROM MORNING SHIFT RN FOR CONTINUITY OF CARE,YUAN, PT IS IN STABLE CONDITION, REACTS TO PAINFUL STIMULI, BUT NONVERBAL AT BASELINE. LUNG SOUND CLEAR BILATERAL UPPER AND LOWER EXTREMITY ON AUSCULTATION. TRACH TO VENT. GTUBE IN PLACE, NEPHRO AT 45ML/HR FOR TUBE FEEDING. MORNING SHIFT RN INFORMED THAT ANGULO CATHETER WAS REMOVED DUE TO BEING A HEMODIALYSIS PATIENT/ANURIC. SINUS RHYTHM ON SOLE LAYER. RIGHT HAND 22GAUGE PERIPHERAL IV, RIGHT FOREARM 20 GAUGE. BOTH ARE PATENT AND AYSMPTOMATIC, SALINE FLUSH. SKIN IS NON=INTACT, PRESSURE WOUND ON SACRAL AREA, AND BLANCHABLE REDNESS ON RIGHT BUTTOCKS COVERED WITH DRESSING. CONTACT ISOLATION MAINTAINED, HOB ELEVATED ABOVE 90 DEG, SEIZURE PRECATIONS MAINTAINED. WILL CONTINUE TO MONITOR.
--- NOTE | 2017-09-11 20:20 | NUR ---
ADMINISTRATION OF 1 UNIT PACKED RED BLOOD CELLS COMPLETE.
--- NOTE | 2017-09-11 20:40 | NUR ---
VAP ORAL CARE AND SUCTIONING PROVIDED TO PT AT BEDSIDE, HOB ELEVATED, REPOSITIONED AND PILLOW SUPPORT PROVIDED.
[2017-09-11] MEDS: ATORVASTATIN 20 MG TAB GT SCH (20:41)
--- NOTE | 2017-09-11 21:55 | NUR ---
HGB OF 9.6, DID NOT ADMINISTER SECOND UNIT OF BLOOD PRODUCT PER DR. VIRGEN ORDER. 20ML/HR OF N/S INFUSING AT THIS TIME. Addendum: 09/12/17 at 0757 by Zohra Naidu RN CORRECTION: DR. HUNT ORDERED NOT TO GIVE THE SECOND UNIT RBC, NOT DR. VIRGEN.
[2017-09-11] MEDS: AZITHROMYCIN 250 MG TAB GT SCH (21:59)
--- NOTE | 2017-09-11 22:00 | NUR ---
REPOSITION PATIENT, PROVIDED SUCTIONING AT BEDSIDE FOR PATIENT COMFORT, HOB ELEVATED.
[2017-09-11 22:01] LABS: BASOPHILS % (AUTO) 0.3 % (0.0-2.0); EOSINOPHILS # (AUTO) 0.1 K/uL (0-0.4); EOSINOPHILS % (AUTO) 0.6 % (0.0-4.0); HEMATOCRIT 27.8 % (36-52); HEMOGLOBIN 9.1 g/dL (12.0-18.0); LYMPHOCYTES # (AUTO) 0.4 K/uL (2.0-11.5); MEAN CORPUSCULAR HEMOGLOBIN 28 pg (27-31); MEAN CORPUSCULAR HGB CONC 33 g/dL (33-37); MEAN CORPUSCULAR VOLUME 86.7 fL (80-94); MONOCYTES # (AUTO) 1.6 K/uL (0.8-1.0); MONOCYTES % (AUTO) 10.8 % (1.7-9.3); NEUTROPHILS # (AUTO) 12.3 K/uL (1.8-7.7); NEUTROPHILS % (AUTO) 85.3 % (42.2-75.2); PLATELET COUNT (AUTO) 215 K/uL (140-450); RED BLOOD CELL COUNT(AUTO) 3.21 MIL/uL (4.20-6.10); RED CELL DISTRIBUTION WIDTH 14.4 % (11.6-13.7); WHITE BLOOD COUNT (AUTO) 14.4 K/uL (4.8-10.8)
--- NOTE | 2017-09-11 23:05 | NUR ---
DR. CAMARA AT PT BEDSIDE, REMOVED PREVIOUS LEFT FEMORAL DIALYSIS CATHETER AND REINSERTED A NEW DIALYSIS CATHETER IN LEFT FEMORAL/GROIN WITH 2 PORTS.
--- NOTE | 2017-09-11 23:10 | NUR ---
DR. MALONEY OBTAINED CONSENT VIA CONTACT ON PT FACE SHEET FOR INSERTION OF DIALYSIS CATHETER.
--- NOTE | 2017-09-11 23:20 | NUR ---
DR. CAMARA INFORMED TO HAVE 4,000 UNITS HEPARIN FLUSH INFUSED TO THE (2,000 UNITS PER PORT) OF DIALYSIS CATHETER. DR. MALONEY TO PLACE ORDER.
--- NOTE | 2017-09-11 23:55 | NUR ---
PROVIDED 4X4 DRESSING TO PATIENT LEFT FEMORAL CATHETER SITE, WAS PREVIOUSLY OPEN TO AIR. OCCASIONAL BLEEDING AT SITE, WHEN PT RUBS LEGS TOGETHER/RESTLESS. SUTURES INTACT.
[2017-09-12] VITALS (22 sets, daily range): BP systolic 96–140; BP diastolic 54–88
--- NOTE | 2017-09-12 00:25 | NUR ---
VAP ORAL CARE PROVIDED, PT REMAINS AFEBRILE. WHITE/CLEAR SECRETIONS NOTED ON SUCTIONING.
[2017-09-12] MEDS: BLOOD GLUCOSE MONITORING 1 DEV DEV FS SCH ×5 (00:42→23:29)
[2017-09-12] MEDS: Z-GUARD PASTE TP SCH ×2 (01:02→13:00)
[2017-09-12] MEDS: ALBUTEROL SULFATE/IPRATROPIU 3 ML SOL IH SCH ×4 (01:06→19:23)
[2017-09-12] MEDS: MIDODRINE 5 MG TAB GT SCH ×5 (01:09→23:29)
--- NOTE | 2017-09-12 04:35 | NUR ---
HEPARIN FLUSH 4000 UNITS INTO LEFT GROIN DIALYSIS CATHETER (2000 UNITS PER PORT) PER DR. HUNT ORDER.
--- NOTE | 2017-09-12 05:13 | NUR ---
LILA FROM LAB, ATTEMPTED TO DRAW PT BLOOD FROM [phone], BUT WAS UNABLE TO. STATED SHE WOULD SEND ANOTHER BEE PRODUCER TO DRAW BLOOD FROM PATIENT.
--- NOTE | 2017-09-12 05:50 | NUR ---
DR. CHEUNG AT PT BEDSIDE TO SEE PATIENT, STATED TO KEEP PATIENT ON CONTINUOUS TUBE FEEDING.
[2017-09-12] MEDS: PANTOPRAZOLE 40 MG TABEC PO SCH (06:47)
--- NOTE | 2017-09-12 07:10 | NUR ---
SENT A PAGE TO DR. BARRON FOR DIALYSIS ORDER. AWAITING FOR CALL BACK
--- NOTE | 2017-09-12 07:45 | NUR ---
RECEIVED REPORT FROM NIGHT NURSEKILEY. PT NON VERBAL. SPONTANEOUS EYE OPENING. TRACH TO VENT. PUPILS FIXED. SKIN DRY AND WARM. CLEAR LUNG SOUNDS, S1S2 HEARD. ACTIVE BOWEL SOUNDS. G TUBE IN PLACE FEEDING RUNNING. SKIN OPEN ON BUTTOCKS SEEMS TO BE HEALING. IVS FLUSHED PATENT AND ASYMPTOMATIC. EDEMA PRESENT ON BILATERAL FEET, HANDS AND ON FACE. SINUS RHYTHM ON MONITOR. WILL CONTINUE TO MONITOR.
--- NOTE | 2017-09-12 08:35 | NUR ---
RECEIVED A RETURNED CALL FROM DR. BARRON. RECEIVED HEMODIALYSIS ORDER FOR TODAY, 09/12/17.
--- NOTE | 2017-09-12 08:38 | NUR ---
MARTHA GUILLAUME FROM [facility] MADE AWARE OF HEMODIALYSIS ORDER. PER MARTHA GUILLAUME, DIALYSIS NURSE WILL BE HERE IN ABOUT IN HOUR.
[2017-09-12] MEDS: LACTOBACILLUS RHAMNOSUS GG 1 EACH CAP PO SCH (08:58)
[2017-09-12] MEDS: levETIRAcetam 100 MG/ML ORASYR GT SCH ×2 (08:58→20:30)
[2017-09-12] MEDS: APIXABAN 2.5 MG TAB GT SCH ×2 (09:00→11:13)
[2017-09-12 09:16] LABS: BASOPHILS # (AUTO) 0.1 K/uL (0.00-0.22); BASOPHILS % (AUTO) 0.4 % (0.0-2.0); EOSINOPHILS % (AUTO) 0.3 % (0.0-4.0); HEMATOCRIT 25.3 % (36-52); HEMOGLOBIN 8.5 g/dL (12.0-18.0); LYMPHOCYTES # (AUTO) 0.5 K/uL (2.0-11.5); LYMPHOCYTES % (AUTO) 3.3 % (20.5-51.1); MEAN CORPUSCULAR HEMOGLOBIN 29 pg (27-31); MEAN CORPUSCULAR HGB CONC 33 g/dL (33-37); MEAN CORPUSCULAR VOLUME 85.6 fL (80-94); MONOCYTES # (AUTO) 1.7 K/uL (0.8-1.0); MONOCYTES % (AUTO) 10.8 % (1.7-9.3); NEUTROPHILS # (AUTO) 13.8 K/uL (1.8-7.7); NEUTROPHILS % (AUTO) 85.2 % (42.2-75.2); PLATELET COUNT (AUTO) 249 K/uL (140-450); RED BLOOD CELL COUNT(AUTO) 2.96 MIL/uL (4.20-6.10); RED CELL DISTRIBUTION WIDTH 14.3 % (11.6-13.7); WHITE BLOOD COUNT (AUTO) 16.2 K/uL (4.8-10.8)
[2017-09-12 09:39] LABS: ANION GAP 19.1 (8-16); POTASSIUM 4.1 mmol/L (3.5-5.1)
[2017-09-12 09:49] LABS: CREATININE 7.2 mg/dL (0.7-1.3)
--- NOTE | 2017-09-12 09:55 | NUR ---
CALLED DIALYSIS NURSE AGAIN TO FOLLOW-UP THEY STATED THEY WOULD BE HERE IN AN HOUR.
--- NOTE | 2017-09-12 10:20 | NUR ---
DR EMANUEL AT BEDSIDE. SPOKE ABOUT PT CONDITION STATED HE WOULD PUT IN AN ORDER FOR IRON. WILL FOLLOW-UP ON NEW ORDERS.
--- NOTE | 2017-09-12 10:34 | NUR ---
DR KWON AND DR CHEUNG AT BEDSIDE. DISCUSS PT PLAN OF CARE. WILL FOLLOW UP WITH ANY NEW ORDERS.
[2017-09-12] MEDS: SODIUM FERRIC GLUCONATE 125 MG in NACL 0.9% 100 ML IV SCH (11:04)
--- NOTE | 2017-09-12 11:13 | NUR ---
PER PHARMACIST, ELIQUIS RENAL DOSE HAS BEEN VERIFIED AND OK TO GIVE FIRST DOSE NOW. MEDICATION GIVEN ORDERED.
--- NOTE | 2017-09-12 11:18 | NUR ---
DIALYSIS NURSE AT BEDSIDE. WILL CONTINUE TO MONITOR PT.
--- NOTE | 2017-09-12 11:25 | NUR ---
SPOKE WITH DR CAMARGO ON PHONE AND HE EXPLAINED THAT AN EGD AND COLONSCOPY WERE SCHEDULED FOR TOMORROW. WILL FOLLOW-UP ON NEW ORDERS.
--- NOTE | 2017-09-12 11:41 | NUR ---
PER DIALYSIS NURSE DIALYSIS ACCESS NOT WORKING. DR. ANDERSON ESCALERA, AWAITING FOR CALL BACK.
--- NOTE | 2017-09-12 11:45 | NUR ---
SPOKE WITH DR EMANUEL REGARDING PROBLEM WITH DIALYSIS CATH. DIALYSIS NURSE SPOKE WITH HIM ON THE PHONE. WILL FOLLOW UP ON NEW ORDERS.
--- NOTE | 2017-09-12 12:00 | NUR ---
DR. BARRON CALLED BACK, MADE AWARE OF DIALYSIS ACCESS NOT WORKING HE STATED TO PAGE OH HAVE HIM CHECK THE SITE. AND IF DIALYSIS ACCESS WORKS, WILL DIALYSE PATIENT WITH SAME ORDERS.
[2017-09-12] MEDS: METOCLOPRAMIDE 10 MG/2 ML INJ VIAL IVP SCH ×3 (12:03→23:29)
[2017-09-12] MEDS: LACTULOSE 20 GM/30 ML UDC PO SCH ×3 (12:29→20:30)
[2017-09-12] MEDS: SENNA 8.6 MG TAB PO SCH ×2 (12:29→17:19)
--- NOTE | 2017-09-12 12:56 | NUR ---
PAGED DR. CAMARA AGAIN REGARDING DIALYSIS SITE NOT WORKING. AWAITING FOR CALL BACK.
--- NOTE | 2017-09-12 13:05 | NUR ---
DR. CAMARA CALLED BACK. PER DR. CAMARA, NOTHING ELSE CAN BE DONE FOR THE DIALYSIS SITE AT THIS TIME. RESIDENT PHYSICIAN DR. CHEUNG MADE AWARE. WILL FOLLOW UP ON ORDERS.
--- NOTE | 2017-09-12 14:29 | NUR ---
Spoke to Dr. Vega and will accept patient at [facility]. Called and spoke to admitting Lorena and all papers faxed [phone] Vega to call Lorena. Called [facility] and spoke to Dania and she does not have bed at all, she even said do not fax any papers at this point. .
--- NOTE | 2017-09-12 14:40 | NUR ---
PER DR. RODRÍGUEZ, HE SPOKE WITH ELMO FROM [facility] AD[facility] AND THERE IS NO BED FOR THE PATIENT AT THIS TIME.
--- NOTE | 2017-09-12 14:45 | NUR ---
PT HAS TEMP OF 100.5 ICE BATH GIVEN. TALKED TO DR CHEUNG SHE STATED SHE WOULD CHANGE THE TYLENOL ORDER PARAMETERS. WILL GIVE TYLENOL ORDERED.
[2017-09-12] MEDS: NACL 0.9% 1,000 ML IV SCH (14:58)
[2017-09-12] MEDS: ACETAMINOPHEN 650 MG/20.3 ML UDC PO PRN (15:04)
--- NOTE | 2017-09-12 15:30 | NUR ---
PT TEMP 98.9 WHEN RECHECKED AFTER TYLENOL AND ICE BATH. WILL CONTINUE TO MONITOR.
--- NOTE | 2017-09-12 15:30 | NUR ---
PT SUCTIONED OBTAINED SMALL AMOUNT OF THIN WHITE SECRETIONS, AIRWAY IS PATENT AND TRACH IS SECURE. WILL CONTINUE TO MONITOR.
--- NOTE | 2017-09-12 16:25 | NUR ---
SPOKE WITH DR BARRON REGARDING PT DIALYSIS CATH. REQUESTING TO SPEAK WITH DIALYSIS NURSE TO TRY TO MANIPULATE CATH. STATED THAT PT URGENTLY NEEDS DIALYSIS, NEEDS TO BE TRANSFERRED TO HIGHER LEVEL OF CARE IN ORDER TO GET CATH PLACED. WILL FOLLOW UP
--- NOTE | 2017-09-12 16:32 | NUR ---
CALLED DIALYSIS NURSE. LEFT MESSAGE. WILL WAIT TO HEAR BACK.
--- NOTE | 2017-09-12 16:34 | NUR ---
SPOKE WITH DR CHEUNG EXPLAINED THAT ANDERSON URGENTLY WANTS DIALYSIS. SHE AGREES BUT STATES THERE IS NOTHING MORE THAT SHE CAN DO. WILL FOLLOW UP PLAN DEVELOPS
--- NOTE | 2017-09-12 16:55 | NUR ---
PT , SYLVIA KING, CALLED FOR UPDATE. EXPLAINED THAT PATIENT NEEDS TO BE TRANSFERRED TO [facility] FOR DIALYSIS CATH PLACEMENT. SHE ALSO CONSENTED FOR EGD AND COLONOSCOPY. INFORMED CONSENT RECEIVED VIA TWO NURSES MYSELF AND PUNEET. WILL FOLLOW UP WITH WHEN PT HAS TRANSFER PLAN.
--- NOTE | 2017-09-12 17:28 | NUR ---
PT REMAINS ON DOCUMENTED VENT SETTINGS. VENT ALARMS REMAIN ON AND FUNCTIONING. TRACH REMAINS SECURE WITH A PATENT AIRWAY. PT NOT IN ANY DISTRESS AT THIS TIME.
--- NOTE | 2017-09-12 17:59 | NUR ---
SPOKE WITH DIALYSIS NURSE, MARTHA. SHE STATED THAT THEY WOUND NOT BE SENDING ANOTHER NURSE BECAUSE THE LINE IS NOT WORKING AND THE NURSE THAT CAME EARLIER TRIED TO TROUBLESHOOT WITHOUT SUCCESS. WILL INFORM DR BARRON OF THIS INFORMATION.
--- NOTE | 2017-09-12 18:02 | NUR ---
DR BARRON PAGED REGARDING DIALYSIS AND PT PLACEMENT. WILL WAIT TO HEAR BACK.
--- NOTE | 2017-09-12 18:23 | NUR ---
SPOKE WITH DR BARRON HE STATED THAT HE WANTS DIALYSIS SCHEDULED FOR TOMORROW AND HE WOULD NOT BE ABLE TO CALL THE HOSPITALS TO TRY AND PLACE THE PATIENT. WILL FOLLOW UP WITH DIALYSIS NURSE TO SCHEDULE TOMORROWS TREATMENT.
--- NOTE | 2017-09-12 18:44 | NUR ---
MARTHA GUILLAUME MADE AWARE OF DIALYSIS ORDER FOR TOMORROW
--- NOTE | 2017-09-12 19:24 | NUR ---
GAVE REPORT TO NIGHT NURSELUIZ. PT STABLE.
--- NOTE | 2017-09-12 19:30 | NUR ---
RECEIVED REPORT FROM MORNING RN FOR CONTINUITY OF CARE. VS STABLE AT THIS TIME. PT OPENS EYES BUT UNABLE TO COMMUNICATE NEEDS. RESPONSIVE TO PAIN. PERRL. PT HAS CONTRACTURES ON BUE/BLE. SINUS RHYTHM ON MONITOR. PULSES PALPABLE IN ALL EXTREMITIES. TRACH TO VENT WITH SETTINGS: AC12, FIO2 28%, TV450 AND PEEP 5. NO SIGNS OF RESPIRATORY DISTRESS NOTED. GTUBE TO FEEDING OF NEPHRO AT 45ML/HR. NO RESIDUAL NOTED AT THIS TIME. PT ANURIC. RECTAL BAG IN PLACE CURRENTLY HAS BOWEL MOVEMENT THAT IS LIQUID WITH CHUNKS NOTED. PT HAS DIALYSIS ACCESS ON LEFT GROIN. BLOOD NOTED ON DRESSING. WILL OBSERVE IF WILL BLEED MORE. PT HAS RIGHT FOREARM PERIPHERAL IV ACCESS 20G THAT HAS NS RUNNING AT 20ML/HR. HOB AT 30 DEGREES. ALL SAFETY PRECAUTIONS ARE IN PLACE. CALL LIGHT WITHIN REACH. WILL CONTINUE TO MONITOR PT.
[2017-09-12] MEDS ORDERED: BOWEL EVACUANT DRINK 4,000 ML PDS PO SCH (20:00)
[2017-09-12] MEDS: ATORVASTATIN 20 MG TAB GT SCH (20:30)
[2017-09-12] MEDS: AZITHROMYCIN 250 MG TAB GT SCH (21:00)
[2017-09-12] MEDS ORDERED: BOWEL EVACUANT DRINK 4,000 ML PDS ONE (21:09)
--- NOTE | 2017-09-12 22:27 | NUR ---
VS STABLE AT THIS TIME. PT HAS BEEN RECEIVING GOLYTELY PER ORDER FOR TOMORROW'S PROCEDURE. PT TOLERATING WELL. WILL CONTINUE TO MONITOR BM.
--- NOTE | 2017-09-12 23:46 | NUR ---
PT STILL GIVEN GOLYTELY AT THIS TIME. BM COLOR STARTING TO GET WARD SUPERVISOR. WILL CONTINUE TO GIVE MEDICATION TO PATIENT. ALL SAFETY PRECAUTIONS ARE IN PLACE. KEPT HOB AT 30 DEGREES. FEEDING STOPPED AT THIS TIME PER ORDER
[2017-09-13] VITALS (10 sets, daily range): BP systolic 93–177; BP diastolic 51–82
--- NOTE | 2017-09-13 01:20 | NUR ---
PT HAD EMESIS X1. PT'S THAVY AT BEDSIDE AT THIS TIME. MORNING CARE PROVIDED TO PT AT THIS TIME. ALL LINENS CHANGED. VS STABLE AT THIS TIME. INFORMED RT TO CHANGED THE TRACH DRESSING WELL. NO SOB NOTED AT THIS TIME. HOB AT 30 DEGREES. ALL SAFETY PRECAUTIONS ARE IN PLACE. WILL CONTINUE TO MONITOR PT.
[2017-09-13] MEDS: ALBUTEROL SULFATE/IPRATROPIU 3 ML SOL IH SCH ×3 (01:24→13:31)
[2017-09-13] MEDS: Z-GUARD PASTE TP SCH (01:30)
[2017-09-13 05:11] LABS: HEMATOCRIT 24.6 % (36-52); HEMOGLOBIN 8.1 g/dL (12.0-18.0); MEAN CORPUSCULAR HEMOGLOBIN 28 pg (27-31); MEAN CORPUSCULAR HGB CONC 33 g/dL (33-37); MEAN CORPUSCULAR VOLUME 85.7 fL (80-94); PLATELET COUNT (AUTO) 238 K/uL (140-450); RED BLOOD CELL COUNT(AUTO) 2.87 MIL/uL (4.20-6.10); RED CELL DISTRIBUTION WIDTH 14.5 % (11.6-13.7); WHITE BLOOD COUNT (AUTO) 17.5 K/uL (4.8-10.8)
[2017-09-13 05:42] LABS: ANION GAP 20.1 (8-16); CARBON DIOXIDE 19.9 mmol/L (21-32)
[2017-09-13] MEDS: MIDODRINE 5 MG TAB GT SCH ×2 (06:00→13:30)
[2017-09-13] MEDS: BLOOD GLUCOSE MONITORING 1 DEV DEV FS SCH ×2 (06:19→11:47)
[2017-09-13] MEDS: METOCLOPRAMIDE 10 MG/2 ML INJ VIAL IVP SCH (06:19)
[2017-09-13] MEDS: PANTOPRAZOLE 40 MG TABEC PO SCH (06:20)
[2017-09-13] MEDS ORDERED: Z-GUARD PASTE TP SCH (06:50)
[2017-09-13 06:54] LABS: CREATININE 7.9 mg/dL (0.7-1.3)
--- NOTE | 2017-09-13 07:29 | NUR ---
REPORT GIVEN TO MORNING RN FOR CONTINUITY OF CARE. VS STABLE AT THIS TIME.
--- NOTE | 2017-09-13 07:30 | NUR ---
RECEIVED REPORT FROM COFFEE GRINDER NURSE AT BEDSIDE, PT IS OPEN EYES ONLY, NON-VERBAL, UNABLE TO FOLLOW COMMANDS AND MAKE NEEDS KNOWN, TRACH TO VENT WITH SETTING FIO2 28, TV 450, R 12, PEEP 5, NO S/S OF DISTRESS, CLEAR LUNG SOUNDS CHRISSY. SR ON CHROMIUM PLATER, GT IN PLACE, NPO SINCE MIDNIGHT DUE TO POSSIBLE SURGERY, F/C IN PLACE, ANURIA NOTED, HD DIALYSIS TTS, DIALYSIS ACCESS TO LEFT FEMORAL, BLEEDING NOTED TO SITE. SEVERE WEAKNESS TO ALL EXTREMITIES, SKIN IS WARM AND DRY TO TOUCH, OPEN WOUND TO RIGHT BUTTOCKS, SEE WOUND ASSESSMENT, PERIPHERAL LINE TO RIGHT FOREARM, 20GA, PATENT AND SL. FLACC 0, VSS, HOB ELEVATED TO 30 DEGREES, PLACED PT TO COMFORT POSITION, SAFETY MEASURES IN PLACE, WILL CONTINUE TO MONITOR.
--- NOTE | 2017-09-13 07:34 | NUR ---
RCV'D PT TRACHED WITH PORTEX 9 AND ON MECHANICAL VENTILATION. SETTINGS CHARTED. VENT IS CONNECTED TO RED OUTLET. ALARMS AUDILE. AMBU BAG AT BEDSIDE. HHN TX OF [place] IS GIVEN. PT HAS MOD AMOUNT OF THICK WHITE CREAMY SECRETIONS. NO SOB OR DISTRESS NOTED. WILL CONTINUE TO MONITOR.
--- NOTE | 2017-09-13 08:00 | NUR ---
HD NURSE CAME IN, TRIED TO FLUSH THE HD CATHETER, STILL OCCLUDED, DR. BARRON NOTIFIED, REQUESTED TO TRANSFER PT TO [facility] FOR [facility] CATHETER PLACEMENT IF NO BED, AFTER THAT CAN TRANSFER PATIENT BACK, WEBBING INSPECTOR YAYA NOTIFIED.
[2017-09-13] MEDS ORDERED: LORazepam 1 MG TAB GT SCH (09:00)
--- NOTE | 2017-09-13 09:04 | NUR ---
DR. FLORES NOTIFIED OF MICRO. RESULTS FROM 09/12/17 RT. BUTTOCK WOUND CULTURE AND BLOOD CULTURE SHOW PRESUMPTIVE MRSA.
--- NOTE | 2017-09-13 09:11 | NUR ---
PATIENT NEEDS TRANSFER TO HIGHER LEVEL OF CARE FOR HD CATHETER. CALLED [facility] AND SPOKE WITH [facility]LYN. [facility] THAT IS TR[facility] TO VENT NEEDS AN ICU BED AND THEY HAVE NO ICU BEDS. I CALLED [facility] AND SPOKE WITH BOB. HE SAID THEY ARE STILL WAITING FOR ACCEPTING DRAmi TO CALL, DR. RODRÍGUEZ. THEY ALSO NEED THE FORM FOR US TO SIGN TO ACCEPT THE PATIENT BACK AND THEY WILL FAX ME A COPY. I CALLED DR. RODRÍGUEZ AND HE SAID HE SPOKE WITH LAMONT AT [facility]. PER BOB, THE CALL SHOULD HAVE BEEN GIVEN TO ADMITTING. I CALLED [facility] AND SPOKE WITH MADELYN. SHE CALLED ME BACK AND SAID SHE NEEDED THE PHYSICIAN TO CALL THE MANAGER STAR DR. AMBROSIO AT [phone] FIRST. WILL INFORM THE PHYSICIAN.
--- NOTE | 2017-09-13 09:50 | NUR ---
PAGED DR. CAMARGO, OK TO GIVE MORNING MEDICATION EVEN PT IS NPO SINCE MIDNIGHT AT THIS TIME.
--- NOTE | 2017-09-13 09:53 | NUR ---
FAXED TRANSFER BACK AGREEMENT TO [facility] [phone] RECEIVED A CALL FROM MADELYN FROM [facility]. 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 PHONE CELL IS [phone]. I GAVE THE PHONE NUMBER TO DR. FLORES.
[2017-09-13] MEDS: levETIRAcetam 100 MG/ML ORASYR GT SCH (10:00)
[2017-09-13] MEDS: LACTULOSE 20 GM/30 ML UDC PO SCH (10:00)
[2017-09-13] MEDS: LACTOBACILLUS RHAMNOSUS GG 1 EACH CAP PO SCH (10:01)
[2017-09-13] MEDS: SENNA 8.6 MG TAB PO SCH (10:01)
[2017-09-13 10:10] LABS: LYMPHOCYTES % (MANUAL) 3 % (20-46); MONOCYTES % (MANUAL) 8 % (5-12)
--- NOTE | 2017-09-13 10:30 | NUR ---
WOUND CARE EVALUATION NOTES: REASON FOR EVALUATION: RIGHT BUTTOCK WOUND SKIN ASSESSMENT DONE ON THIS 52 Y/O MALE PATIENT FROM [facility] TO [facility], WITH INITIAL DIAGNOSIS OF ANEMIA AND FEVER. PAST MEDICAL HISTORY INCLUDE CVA, DIABETES, RENAL DISEASE AND SEIZURE. ALL ABOVE INFORMATION WAS OBTAINED FROM THE ADMISSION H&P. WBC 17.5, H/H 8.1/24.6, GLUCOSE 119 AND ALBUMIN 2.1. PATIENT IS AWAKE, SKIN IS WARM AND DRY. BLE SKIN INTACT, CONTRACTURE OF BLE, NO HAIR GROWTH AND BILATERAL PEDAL PULSES PRESENT. CAPILLARY REFILL <3 SEC X 10 TOES. TOE NAILS SHORT AND THICKEN. PLAN OF CARE DISCUSSED WITH PRIMARY RN. INTEGUMENTARY: -MULTIPLE OLD HEALED SCARS TO RIGHT CHEST AND RIGHT SHOULDER -GT STEFFANIE-STOMA SKIN DRY WITH SKIN INTACT -LEFT ISCHIUM HEALED SCAR -RIGHT ISCHIUM PRESSURE INJURY STAGE 4, 2X2X0.8 CM WOUND BED IS RED, STEFFANIE- WOUND NON-BLANCHABLE WITH SKIN INTACT , SMALL AMOUNT OF SEROSANGUINOUS DRAINAGE, NO ODOR -SACRALCOCCYX PRESSURE INJURY STAGE 1, 2X1CM WITH SURROUNDING DENUDED SKIN EXTENDED TO B/L BUTTOCKS IAD -R/L BUTTOCKS IAD DEFUSED WITH ENTIRE MEASUREMENT 5X7 CM WITH SCATTERED MULTIPLE PARTIAL THICKNESS EROSIONS, WOUND BED COLOR PINK AND MOIST, NO ODOR -LEFT FEMORAL ANA LUISA CATH SITE, SUTURES IN PLACE AND SECURED, SMALL AMOUNT OF BLEEDING NOTICE, SITE IS CLEAN NO S/S OF INFECTION. PRESSURE DRESSING APPLIED BY PRIMARY RN RECOMMENDATIONS: -MOISTURE CONTROL BY USING RECTAL BAG, MAY CONSIDER DIVERSION COLOSTOMY FOR CHRONIC, UNHEALED, WOUND. -APPLY THICK LAYER OF Z-GUARD TO IAD LEFT AND RIGHT BUTTOCKS BIDWC AND PRN IF SOILING -APPLY HYDRAGUARD TO SACRALCOCCYX AND BLE DRYNESS BIDWC LEAVE IT OPEN TO AIR -CLEANSE RIGHT ISCHIUM PRESSURE INJURY WITH WOUND CARE SOLUTION, PAT DRY, PACK WOUND WITH HYDROGEL AND COVER WITH COMPOSITE DRESSING QD AND PRN IF SOILING -TURN AND REPOSITION PATIENT Q2H -OFFLOAD BILATERAL HEELS BY PLACING PILLOWS UNDER CALVES AT ALL TIMES, UNLESS OTHERWISE CONTRAINDICATED -PRESSURE REDISTRIBUTION SURFACE THERAPY -KEEP SKIN CLEAN AND DRY AT ALL TIMES. RECOMMENDATIONS DISCUSSED WITH PRIMARY RN WILL FOLLOW UP PATIENT Q 7 -10 DAYS AND PRN. PLEASE CONTACT WOUND CARE NURSE FOR ANY QUESTION OR CHANGES IN WOUND CONDITION
[2017-09-13] MEDS: SODIUM FERRIC GLUCONATE 125 MG in NACL 0.9% 100 ML IV SCH (10:43)
--- NOTE | 2017-09-13 11:05 | NUR ---
[facility] EXAMINER[facility]ATIMAH CALLED FROM [facility] AND GAVE A ROOM NUMBER [id number], CALL TO REPORT AT [phone].
--- NOTE | 2017-09-13 11:10 | NUR ---
INFORMED DR. CAMARGO ABOUT PT IS GOING TO TRANSFER TO [place], DR. CAMARGO SAID PT IS GOING TO HAVE EGD AT 1200, HOLD THE TRANSFER FOR LATER.
[2017-09-13] MEDS ORDERED: PROBIOTIC SCREEN 1 EA MISC MC PRN (11:20)
--- NOTE | 2017-09-13 11:20 | NUR ---
DATA STEWARD CALLED AND CORRECTED [facility] ROOM NUMBER [id number], CALL TO REPORT AT [phone], DR. Ana Rosa NAPIER WILL BE THE ADMITTING PHYSICIAN.
--- NOTE | 2017-09-13 12:00 | NUR ---
GI LAB TEAM AT BEDSIDE, PREPARE FOR PROCEDURE.
--- NOTE | 2017-09-13 12:21 | NUR ---
RECEIVED A CALL FROM MADELYN FROM [facility]. SHE SAID THAT THIS PATIENT WILL GO TO ROOM 116A UNDER DR. Hilda NAPIER. CALL REPORT TO [phone]. Addendum: 09/13/17 at 1228 by Pina Talbert MADELYN FROM [facility] CALLED. SHE ASKED ME TO FAX FACE SHEET, H&P, MED LIST AND MICROS TO [phone]., WHICH I DID.
--- NOTE | 2017-09-13 12:28 | NUR ---
CALLED [facility] AND INFORMED THEM THAT THE PATIENT IS GOING TO [place]. I CALLED [facility] AND CANCELLED THE TRANSFER TO THEM. TRI SERRANO AT [facility].
[2017-09-13] MEDS ORDERED: MIDAZOLAM 2 MG/2 ML VIAL ONE ×2 (12:31)
[2017-09-13] MEDS ORDERED: fentaNYL 0.05 MG/ML VIAL ONE (12:31)
[2017-09-13] MEDS ORDERED: diphenhydrAMINE 50 MG/ML VIAL ONE (12:32)
--- NOTE | 2017-09-13 13:15 | NUR ---
PROCEDURE DONE AT BEDSIDE, DR. CAMARGO SAID IT IS OK TO TRANSFER PT TO ANOTHER HOSPITAL AT THIS TIME.
--- NOTE | 2017-09-13 13:47 | NUR ---
SPOKE TO PRIMARY RN TO HAVE PHOTO TAKEN TO ALL SKIN ALTERATION AREAS, CLARIFICATION PT ADMITTED WITH PRESSURE INJURY STAGE 4 RIGHT ISCHIUM, IAD TO LEFT AND RIGHT BUTTOCKS.
[2017-09-13] MEDS ORDERED: fentaNYL 0.05 MG/ML VIAL IVP ONE (13:50)
[2017-09-13] MEDS ORDERED: MIDAZOLAM 2 MG/2 ML VIAL IVP ONE (13:50)
--- NOTE | 2017-09-13 13:50 | NUR ---
REPORT GIVEN TO FRACISCO CHRISTENSEN AT [facility], TOP LIFT COMPRESSER TIME AT 1500
--- NOTE | 2017-09-13 14:00 | NUR ---
DR. BARRON CAME TO SEE PT AT BEDSIDE, NO NEW ORDER AT THIS TIME.
[2017-09-13] MEDS ORDERED: PROC10I SUBQ (14:37)
[2017-09-13] MEDS ORDERED: AZIT250T11 GT (14:37)
[2017-09-13] MEDS ORDERED: BACTO TP (14:38)
[2017-09-13] MEDS ORDERED: Vancomycin Per Pharmacy MC (14:44)
[2017-09-13] MEDS ORDERED: VANCOMYCIN PER PHARMACY MC PRN (14:45)
--- NOTE | 2017-09-13 15:10 | NUR ---
PT PICKED BY [facility], DISCHARGE PACKAGE GIVEN, ALL THE PAPER SIGNED, AND ALL BELONGS GOES WITH PT, NO INCIDENT OCCURRED.
[2017-09-14 06:50] LABS: FOLIC ACID > 20.00 ng/mL (>3.0)
--- NOTE | 2017-09-14 12:45 | NUR ---
ADDENDUM:SPUTUM CULTURE RESULTS FEW WHITE BLOOD CELLS,MANY GRAM NEGATIVE RODS,MANY GRAM POSITIVE RODS. PATIENT DISCHARGED FROM ICU TO [facility] RM.115-A. FAX RESULTS TO NURSE FARRELL.
== END 2017-09-13 15:15 | disposition short-term general hospital (02) | DRG 208 ==
LOC: MED 14:27 → MIC 17:34 → MMU 09-11 00:06 → MIC 09-11 00:27 → MMU 09-11 04:49 → MIC 09-11 06:16
PROVIDERS: ADMIT Family Medicine; ATTEND Family Medicine
PROC: 30233N1 Transfusion of Nonautologous Red Blood Cells into Peripheral Vein, Percutaneous Approach (ICD-10-PCS; principal; 2017-09-10)
PROC: 5A1945Z Respiratory Ventilation, 24-96 Consecutive Hours (ICD-10-PCS; 2017-09-10)
PROC: 30233N1 Transfusion of Nonautologous Red Blood Cells into Peripheral Vein, Percutaneous Approach (ICD-10-PCS; 2017-09-11)
PROC: 06PYX3Z Removal of Infusion Device from Lower Vein, External Approach (ICD-10-PCS; 2017-09-11)
PROC: 06HN33Z Insertion of Infusion Device into Left Femoral Vein, Percutaneous Approach (ICD-10-PCS; 2017-09-11)
PROC: 5A1D70Z Performance of Urinary Filtration, Intermittent, Less than 6 Hours Per Day (ICD-10-PCS; 2017-09-11)
PROC: 5A1D70Z Performance of Urinary Filtration, Intermittent, Less than 6 Hours Per Day (ICD-10-PCS; 2017-09-12)
PROC: 0DJ08ZZ Inspection of Upper Intestinal Tract, Via Natural or Artificial Opening Endoscopic (ICD-10-PCS; 2017-09-13)
PROC: 0DJD8ZZ Inspection of Lower Intestinal Tract, Via Natural or Artificial Opening Endoscopic (ICD-10-PCS; 2017-09-13)
DX: J69.0 Pneumonitis due to inhalation of food and vomit (principal); N17.0 Acute kidney failure with tubular necrosis; N18.6 End stage renal disease; G82.50 Quadriplegia, unspecified; E43 Unspecified severe protein-calorie malnutrition; G93.40 Encephalopathy, unspecified; K57.31 Diverticulosis of large intestine without perforation or abscess with bleeding; J96.21 Acute and chronic respiratory failure with hypoxia; T82.41XA Breakdown (mechanical) of vascular dialysis catheter, initial encounter; E87.1 Hypo-osmolality and hyponatremia; I13.2 Hypertensive heart and chronic kidney disease with heart failure and with stage 5 chronic kidney disease, or end stage renal disease; Z99.11 Dependence on respirator [ventilator] status; D68.59 Other primary thrombophilia; E11.51 Type 2 diabetes mellitus with diabetic peripheral angiopathy without gangrene; R74.8 Abnormal levels of other serum enzymes; K64.8 Other hemorrhoids; K75.9 Inflammatory liver disease, unspecified; E83.51 Hypocalcemia; R74.0 Nonspecific elevation of levels of transaminase and lactic acid dehydrogenase [LDH]; R13.10 Dysphagia, unspecified; R94.5 Abnormal results of liver function studies; D63.8 Anemia in other chronic diseases classified elsewhere; K21.9 Gastro-esophageal reflux disease without esophagitis; L89.151 Pressure ulcer of sacral region, stage 1; Y83.8 Other surgical procedures as the cause of abnormal reaction of the patient, or of later complication, without mention of misadventure at the time of the procedure; E11.22 Type 2 diabetes mellitus with diabetic chronic kidney disease; E11.69 Type 2 diabetes mellitus with other specified complication; E88.09 Other disorders of plasma-protein metabolism, not elsewhere classified; F01.50 Vascular dementia, unspecified severity, without behavioral disturbance, psychotic disturbance, mood disturbance, and anxiety; G40.909 Epilepsy, unspecified, not intractable, without status epilepticus; I50.9 Heart failure, unspecified; I69.311 Memory deficit following cerebral infarction; Z99.2 Dependence on renal dialysis; Y92.89 Other specified places as the place of occurrence of the external cause; Z93.0 Tracheostomy status; Z93.1 Gastrostomy status; Z79.899 Other long term (current) drug therapy; Z88.5 Allergy status to narcotic agent
CPT/HCPCS: 36415; 71045; 76705; 80048; 80053; 82272; 82550; 82607; 82746; 82948; 83036; 83540; 83605; 83690; 83735; 83880; 84100; 84134; 84443; 84484; 85025; 85045; 85610; 85730; 86886; 86900; 86901; 86920; 87040; 87070; 87081; 87186; 87205; 89220; 93005; 94002; 94003; 94640; 96361; 96365; 99285; J0696; J0885; J1200; J1644; J1815; J2250; J2765; J2916; J3010; J7030; J7060; J7620; P9016; Q0092